=== PATIENT | male | born 1965 | race Caucasian/White ===

== ENCOUNTER 2017-09-28 17:42 | Observation (INO) ==
[2017-09-28 18:57] LABS: Basophils % 0.3 %; Eosinophils # 0.1 K/mcL (0.0-0.6); Eosinophils % 1.1 %; Hemoglobin 14.8 g/dL (12.9-16.9); Immature Granulocytes % 0.7 % (0-4); Lymphocytes # 1.3 K/mcL (0.6-4.6); Lymphocytes % 17.5 %; Mean Corpuscular HGB Conc 32.2 g/dL (31.6-35.5); Mean Corpuscular Volume 96.2 fL (83.0-100.0); Mean Platelet Volume 10.9 fL (9.4-12.4); Monocytes # 0.4 K/mcL (0.0-1.3); Neutrophils # 5.4 K/mcL (1.6-8.9); Platelet Count 127 K/mcL (140-400); Red Blood Count 4.78 M/mcL (4.19-5.50); Red Cell Distribution Width 13.9 % (11.5-14.5); Segmented Neutrophils % 74.4 %
[2017-09-28 19:10] LABS: Calcium 8.8 mg/dL (8.6-10.3); Chloride 108 mEq/L (98-107); Glucose 236 mg/dL (70-105); Potassium 5.4 mEq/L (3.5-5.1); Sodium 142 mEq/L (136-145); eGFR For African Americans > 60 (> 60); eGFR For Non-African Americans > 60 (> 60)
[2017-09-28 19:52] LABS: Carbon Dioxide 31 mEq/L (23-29)
[2017-09-28 19:58] LABS: BUN/Creatinine Ratio 17 (6-26); Blood Urea Nitrogen 20 mg/dL (6-20); Osmolality,Calculated 304 (280-300)
[2017-09-28] MEDS ORDERED: Furosemide 40 MG/4 ML VIAL IVP ONE (20:58)
--- NOTE | 2017-09-28 21:43 | Emergency Department Note ---
Disposition Clinical Impression: Shortness of breath, Peripheral edema, Obesity, Bronchiolitis obliterans Disposition: Admitted As Inpatient Condition: Good Referrals: Johnna Stern CNP [Primary Care Provider] - Forms: ED Satisfaction Letter Time of Disposition: 22:31 SOB HPI - General Chief Complaint: ED Shortness of Breath/Dyspnea Stated Complaint: LONA Time Seen by Provider: 09/28/17 20:36 Source: patient Limitations: no limitations Nursing Notes Reviewed: Yes Vital Signs Reviewed: Yes - History of Present Illness 51-year-old male presents to the ER or shortness of breath. This is been short of breath over a month but seems to be getting worse over the past few days. He is gaining 30 pounds in a month. States his legs have gotten swollen as well as his abdomen feels tighter than normal. He denies any actual chest pain. No fevers. No significant cough. He has no history of any heart or lung problems. He does not smoke. No sputum production. States he is short of breath with activity and while laying flat. No other complaints. - Related Data Allergies Allergy/AdvReac Type Severity Reaction Status Date / Time clindamycin Allergy Chest Pain Verified 09/28/17 17:49 Constitutional: Denies: fever, chills Eyes: Reports: as per HPI ENT ED: Reports: as per HPI Cardiovascular: Reports: dyspnea on exertion, orthopnea, edema. Denies: chest pain, palpitations Respiratory: Reports: as per HPI Gastrointestinal: Reports: as per HPI. Denies: abdominal pain Genitourinary: Reports: as per HPI Musculoskeletal: Reports: as per HPI Integumentary: Reports: as per HPI Neurological: Reports: as per HPI Psychiatric: Reports: as per HPI Endocrine: Reports: as per HPI Hematological/Lymphatic: Reports: as per HPI Past Medical History - Past Medical History Medical history: Reports: diabetes - Social History Smoking Status: Never smoker Alcohol use: Reports: none Drug use: Reports: none Physical Exam - General Limitations: no limitations General appearance: alert, in no apparent distress - Head Head exam: atraumatic, normocephalic - Eye Eye exam: Present: normal appearance - ENT ENT exam: normal exam - Chest Chest inspection: Present: normal inspection - Respiratory Respiratory exam: Present: wheezes. Absent: accessory muscle use, prolonged expiratory phase - Cardiovascular Cardiovascular exam: Present: normal rhythm, tachycardia - Abdominal Exam Abdominal exam: Present: soft, Non-Tender, distention - Extremities Exam Extremities exam: Present: pedal edema, other (Diffuse lower extremity swelling. 2-3+ pitting bilaterally) - Back Exam Back exam: Present: normal inspection - Neurological Exam Neurological exam: Present: alert, oriented X3 - Psychiatric Psychiatric exam: Present: normal affect, normal mood - Skin Skin exam: Present: warm, dry, intact Course Vital Signs Temperature 97.7 F 09/28/17 17:46 Pulse Rate 96 09/28/17 17:46 Respiratory Rate 22 09/28/17 17:46 Blood Pressure 152/91 09/28/17 17:46 O2 Sat by Pulse Oximetry 91 09/28/17 17:46 Temperature 97.7 F 09/28/17 17:46 Pulse Rate 82 09/28/17 21:33 Respiratory Rate 18 09/28/17 21:33 Blood Pressure 139/82 09/28/17 21:33 O2 Sat by Pulse Oximetry 96 09/28/17 21:33 Oxygen Delivery Oxygen Delivery Nasal Cannula Shortness of Breath/Dyspnea - MDM Narrative Medical decision making narrative: Patient's lab work did not reveal any significant abnormalities. I did a CTA of his chest to rule out any pulmonary embolus. That was in fact negative however at this appeared that he has evidence of a bronchiolitis obliterans. Also of note that he could have some chronic pulmonary embolus but nothing acute. He also has a prominent cardiac fat pad. Patient was given Solu-Medrol based on this CT report as well as some IV Lasix. He will be admitted for pulmonary consult and likely cardiac echo. He with this plan. I discussed the case with the hospitalist. - Medical Records Medical records reviewed: Yes I reviewed the patient's medical records. - Lab Data Lab results reviewed: Yes I reviewed the patient's lab results. Result diagrams: 09/28/17 18:48 09/28/17 18:48 Lab Results 09/28/17 09/28/17 09/28/17 Range/Units 18:48 18:48 18:48 WBC 7.2 (4.3-11.1) K/mcL RBC 4.78 (4.19-5.50) M/mcL Hgb 14.8 (12.9-16.9) g/dL Hct 46.0 (37.5-50.1) % MCV 96.2 (83.0-100.0) fL MCH 31.0 (28.0-33.3) pg MCHC 32.2 (31.6-35.5) g/dL RDW 13.9 (11.5-14.5) % Plt Count 127 L (140-400) K/mcL MPV 10.9 (9.4-12.4) fL Immature Gran % 0.7 (0-4) % Seg Neutrophils % 74.4 % Lymphocytes % 17.5 % Monocytes % 6.0 % Eosinophils % 1.1 % Basophils % 0.3 % Neutrophils # 5.4 (1.6-8.9) K/mcL Lymphocytes # 1.3 (0.6-4.6) K/mcL Monocytes # 0.4 (0.0-1.3) K/mcL Eosinophils # 0.1 (0.0-0.6) K/mcL Basophils # 0.0 (0.0-0.2) K/mcL Sodium 142 (136-145) mEq/L Potassium 5.4 H (3.5-5.1) mEq/L Chloride 108 H (98-107) mEq/L Carbon Dioxide 31 H (23-29) mEq/L BUN 20 (6-20) mg/dL Creatinine 1.16 (0.70-1.30) mg/dL Est GFR ( Amer) > 60 (> 60) Est GFR (Non-Af Amer) > 60 (> 60) BUN/Creatinine Ratio 17 (6-26) Glucose 236 H (70-105) mg/dL Calculated Osmolality 304 H (280-300) Lactic Acid 1.2 (0.5-2.2) mmol/L Calcium 8.8 (8.6-10.3) mg/dL Troponin I (< 0.04) ng/mL B-Natriuretic Peptide (Less than 100) pg/mL 09/28/17 09/28/17 Range/Units 18:48 18:48 WBC (4.3-11.1) K/mcL RBC (4.19-5.50) M/mcL Hgb (12.9-16.9) g/dL Hct (37.5-50.1) % MCV (83.0-100.0) fL MCH (28.0-33.3) pg MCHC (31.6-35.5) g/dL RDW (11.5-14.5) % Plt Count (140-400) K/mcL MPV (9.4-12.4) fL Immature Gran % (0-4) % Seg Neutrophils % % Lymphocytes % % Monocytes % % Eosinophils % % Basophils % % Neutrophils # (1.6-8.9) K/mcL Lymphocytes # (0.6-4.6) K/mcL Monocytes # (0.0-1.3) K/mcL Eosinophils # (0.0-0.6) K/mcL Basophils # (0.0-0.2) K/mcL Sodium (136-145) mEq/L Potassium (3.5-5.1) mEq/L Chloride (98-107) mEq/L Carbon Dioxide (23-29) mEq/L BUN (6-20) mg/dL Creatinine (0.70-1.30) mg/dL Est GFR ( Amer) (> 60) Est GFR (Non-Af Amer) (> 60) BUN/Creatinine Ratio (6-26) Glucose (70-105) mg/dL Calculated Osmolality (280-300) Lactic Acid (0.5-2.2) mmol/L Calcium (8.6-10.3) mg/dL Troponin I 0.03 (< 0.04) ng/mL B-Natriuretic Peptide 82 (Less than 100) pg/mL - Radiology Data Radiology results reviewed: Yes I reviewed the patient's radiology results. - EKG Data EKG attestation: Yes I reviewed and interpreted this EKG. EKG results narrative: EKG shows a rate of 90. Normal sinus rhythm. Normal axis. MO interval 112. QRS 94. QTC 396. No signs of acute ischemia.
[2017-09-28] MEDS ORDERED: methylPREDNISolone 125 MG/2 ML VIAL IVP ONE (22:22)
[2017-09-29] MEDS ORDERED: Ondansetron 4 MG/2 ML VIAL IVP PRN (02:56)
[2017-09-29] MEDS ORDERED: Naloxone 0.4 MG/ML INJ IVP PRN (02:56)
[2017-09-29] MEDS ORDERED: Ipratropium/Albuterol Neb 3 ML IH PRN (03:09)
[2017-09-29] MEDS ORDERED: *HR* Dextrose 50 % in Water (Syg) 50 ML SYRINGE IVP PRN (03:12)
[2017-09-29] MEDS ORDERED: Dextrose Gel 15 GM/37.5 ML TUBE PO PRN ×2 (03:12)
[2017-09-29] MEDS ORDERED: D5% in Water 1,000 ML IVC PRN (03:12)
--- NOTE | 2017-09-29 03:16 | Internal Med History&Physical ---
Date of Encounter: 09/29/17 Time of Encounter: 02:45 Assessment and Plan (1) Bronchiolitis obliterans Current visit: Yes Status: Acute Presented with progressive exertional dyspnea, leg swelling. CT angiogram of chest showed no evidence of pulmonary embolism but showed bilateral groundglass attenuation suggestive of small airway disease like bronchiolitis. Continue IV steroids, start IV azithromycin. Supplemental oxygen and supportive care. Check echocardiogram. Pulmonary consult. (2) Essential hypertension Current visit: Yes Status: Chronic Blood pressure noted to be well controlled. Continue home medications. (3) Diabetes mellitus Current visit: Yes Status: Chronic Check hemoglobin A1c, start Accu-Chek blood glucose monitoring with basal bolus insulin regimen. Diabetic diet. Qualifiers: Diabetes mellitus type: type 2 Diabetes mellitus complication status: with unspecified complications Diabetes mellitus halfway insulin use: with halfway use Qualified Code(s): E11.8 - Type 2 diabetes mellitus with unspecified complications; Z79.4 - intermediate card tender (current) use of insulin; Z79.4 - retirement ( current) use of insulin; Z79.4 - retirement (current) use of insulin; Z79.4 - intermediate card tender (current) use of insulin (4) Morbid obesity Current visit: Yes Status: Chronic Internal Medicine - H&P: HPI Chief complaint: Shortness of breath Admitted From: Emergency Dept Plans for Post Hospital Care: Home History of present illness: Mr. Ruano is a 51 year old male with history of hypertension and diabetes, who presents with a one-month history of progressively worsening shortness of breath. Patient reports that he has been having difficulty breathing at least for the last 1 month, getting worse gradually, associated with dry hacking cough. Dyspnea is aggravated with minimal exertion or walking a few steps. He denies associated chest pain, palpitations, wheezing, hemoptysis, fever/chills. He has leg swelling and he is on Lasix at home, has not been diagnosed with CHF. No previous similar history. No recent travel, no sick contacts at home. Did not receive flu vaccine this season. Past Med Surg Social Fam HX - Past Medical History Source: patient Medical history: diabetes, hypertension Psychiatric history: no psych history - Past Surgical History Surgical History: orthopedic, other (Left shoulder surgery) - Social History Smoking Status: Never smoker Alcohol use: none Drug use: none Occupational status: disabled Current living situation: Home, With Family Activity Level: Independent ambulation Recent Out of Country Travel Within the Last 8 Weeks: No Exposure or Possible Exposure to Illness During Travel: No - Family History Father Hx Family Cancer: Yes (Colon cancer) Hx Family Endocrine Disorder: Yes (Diabetes) Internal Medicine - H&P: Meds Amitriptyline [Elavil] 25 mg PO HS 09/28/17 [History] Amlodipine Besylate 2.5 mg PO DAILY 09/28/17 [History] Ergocalciferol (VITAMIN D2) [Vitamin D2] 50,000 unit PO LAUGHLIN 09/28/17 [History] Furosemide [Lasix] 20 mg PO BID 09/28/17 [History] Gabapentin [Neurontin] 200 mg PO HS 09/28/17 [History] Ibuprofen [Motrin] 800 mg PO Q8HR 09/28/17 [History] Insulin ASPART [NovoLOG] 0 unit SQ BIDWM 09/28/17 [History] Insulin Glargine [Lantus] 60 unit SQ BID 09/28/17 [History] Losartan Potassium [Cozaar] 100 mg PO DAILY 09/28/17 [History] metFORMIN [Glucophage] 500 mg PO BIDWM 09/28/17 [History] 3 Allergy/AdvReac Type Severity Reaction Status Date / Time clindamycin Allergy Chest Pain Verified 09/28/17 17:49 All Systems PM: A 10-system review of systems was performed and is negative for pertinent findings except as documented above in the HPI. - Constitutional Constitutional: no chills, no fever(s), no night sweats - EENT Eyes: no change in vision, no discharge, no pain, no photophobia Ears: no ear discharge, no ear pain, no tinnitus Nose, mouth and throat: no dysphagia, no nasal discharge, no neck pain, no sore throat - Cardiovascular Cardiovascular ROS IM: dyspnea on exertion, edema - Respiratory Respiratory: cough, dyspnea - Gastrointestinal Gastrointestinal: no abdominal pain, no diarrhea, no hematemesis, no hematochezia, no melena, no nausea, no vomiting - Musculoskeletal Musculoskeletal ROS IM: no numbness, no tingling - Integumentary Integumentary IM: no rash, no unusual bruising - Neurological Neurological ROS: no confusion, no convulsions, no focal weakness, no numbness, no tingling, no tremor(s) - Hematologic/Lymphatic Hematologic/Lymphatic: no easy bruising - Constitutional Vitals: Temp Pulse Resp BP Pulse Ox 97.7 F 85 16 118/75 93 09/28/17 23:53 09/28/17 23:53 09/28/17 23:53 09/28/17 23:53 09/28/17 23:53 General appearance: Present: A&O X 3, morbidly obese, answers questions appropriately - Respiratory Respiratory exam: Present: CTAB, wheezes (end expiratory wheezing at left base) . Absent: accessory muscle use, rales, rhonchi - Cardiovascular Cardiovascular exam: Present: RRR, +S1, +S2. Absent: diastolic murmur, gallop, rubs, systolic murmur - GI/Abdominal GI/Abdominal exam: Present: normal bowel sounds, soft (obese), no peritoneal signs. Absent: distended, tenderness - Extremities Exam Extremities exam: Present: full ROM, pedal edema (1+ pedal edema), warm, radial pulses palpable and symmetrical. Absent: calf tenderness, cyanotic - Neurological Exam Neurological exam: Present: CN II-XII intact, oriented X3, no focal deficits. Absent: pronater drift, facial droop, speech deficit - Skin Skin exam: Present: dry, intact Internal Med - H&P Results - Labs CBC & Chem 7: 09/29/17 03:49 09/29/17 03:49
[2017-09-29] MEDS: Azithromycin 500 MG in D5% in Water 250 ML IVPB SCH (04:02)
[2017-09-29 04:22] LABS: Basophils % 0.2 %; Eosinophils % 0.2 %; Hematocrit 50.6 % (37.5-50.1); Hemoglobin 15.8 g/dL (12.9-16.9); Immature Granulocytes % 1.5 % (0-4); Lymphocytes # 0.7 K/mcL (0.6-4.6); Lymphocytes % 8.3 %; Mean Corpuscular HGB Conc 31.2 g/dL (31.6-35.5); Mean Corpuscular Hemoglobin 29.8 pg (28.0-33.3); Mean Corpuscular Volume 95.5 fL (83.0-100.0); Mean Platelet Volume 10.6 fL (9.4-12.4); Monocytes # 0.1 K/mcL (0.0-1.3); Monocytes % 1.1 %; Neutrophils # 7.2 K/mcL (1.6-8.9); Platelet Count 137 K/mcL (140-400); Red Cell Distribution Width 13.7 % (11.5-14.5); Segmented Neutrophils % 88.7 %
[2017-09-29 04:26] LABS: Hemoglobin A1C 7.5 %
[2017-09-29 04:30] LABS: BUN/Creatinine Ratio 24 (6-26); Blood Urea Nitrogen 22 mg/dL (6-20); Calcium 9.2 mg/dL (8.6-10.3); Carbon Dioxide 29 mEq/L (23-29); Chloride 105 mEq/L (98-107); Glucose 308 mg/dL (70-105); Osmolality,Calculated 305 (280-300); Potassium 5.1 mEq/L (3.5-5.1); Sodium 140 mEq/L (136-145); eGFR For African Americans > 60 (> 60); eGFR For Non-African Americans > 60 (> 60)
--- NOTE | 2017-09-29 06:57 | Pulmonology Consult Note ---
<ManuelJuan Jose hernandez - Last Filed: 09/29/17 15:22> Date of Encounter: 09/29/17 Assessment and Plan (1) Acute respiratory failure Current Visit: Yes Status: Acute - Progressive exertional dyspnea and non productive cough x 1 month - CTA negative for PE, however shows bilateral ground glass opacities suggestive of small vessel airway disease such as bronchiolitis with less likely pulmonary edema - Pt currently tolerating 3L O2 via NC. - Admits to orthopnea and PND however BNP wnl. It is noted that pt is morbidly obese - Expiratory wheezes on exam consistent with bronchitis picture - Likely a component of undiagnosed asthma exacerbated by recent URI per HPI. Plan - Continue supportive treatment with O2, duonebs, prednisone 40 mg Qday. - Will start symbicort and albuterol and continue as outpatient. Will need outpatient follow up with pulmonology for PFTs, and sleep study. - Azithromycin 500 mg qday - Continue home lasix dose for LE swelling - Echo pending. Qualifiers: Respiratory failure complication: hypoxia Qualified Code(s): J96.01 - Acute respiratory failure with hypoxia (2) Bronchitis Current Visit: Yes Status: Acute - likely bronchitis etiology of SOB secondary to reported URI after travel in July - Likely bronchititis with underlying asthma and obesity hypoventilation syndrome. - Flu and respiratory panel negative. Plan Management as above for respiratory failure. (3) Peripheral edema Current Visit: Yes Status: Acute - No known reported history of CHF - Possible etiology of cardiogenic vs lymphadema - Echo pending - Takes lasix at home. - BNP 82, may be false low due to obesity Plan - Echo pending - Continue home lasix - Strict I/Os (4) Essential hypertension Current Visit: Yes Status: Chronic Well controlled at this time. Continue home meds (5) Diabetes mellitus Current Visit: Yes Status: Chronic - Reports tight glucose control at home. -BS elevated this AM at 308, likely the result of high dose steroids - Receiving medium SSI and methylprednisone 40 mg q6hr - Will likely continue to require high doses or steroids continuing after discharge. Plan Further management per primary team Qualifiers: Diabetes mellitus type: type 2 Diabetes mellitus complication status: with unspecified complications Diabetes mellitus manager terminal insulin use: with senior living use Qualified Code(s): E11.8 - Type 2 diabetes mellitus with unspecified complications; Z79.4 - roasterman (current) use of insulin; Z79.4 - long-term ( current) use of insulin; Z79.4 - long-term (current) use of insulin; Z79.4 - roasterman (current) use of insulin (6) Morbid obesity Current Visit: Yes Status: Chronic Encouraged weight loss as outpatient History of Present Illness History of present illness: Mr. Ruano is a 51-year-old morbidly obese male who presented to the emergency room with chief complaint of one month of progressive exertional dyspnea. He states he has never experienced this before and this has been doing progressively worse over this time. He states that he has experienced a 30 pound weight gain in the previous 2 months but denies any history of COPD, CHF, pulmonary disease of any kind. He admits to orthopnea and paroxysmal nocturnal dyspnea but denies any symptoms of apnea and states that his noticed snoring but no periods of apnea. He does admit to a nonproductive cough and chronic night sweats, however. Denies any symptoms of fevers, chills or nausea , vomiting, abdominal pain. He does admit to some chest pain with coughing but it is nonexertional in nature. Denies any history of smoking inhalation, is a Nonsmoker, no secondhand or occupational fume inhalation. He does not wearing oxygen at home. Medications and Allergies Amitriptyline [Elavil] 25 mg PO HS 09/28/17 [History] Amlodipine Besylate 2.5 mg PO DAILY 09/28/17 [History] Ergocalciferol (VITAMIN D2) [Vitamin D2] 50,000 unit PO LAUGHLIN 09/28/17 [History] Furosemide [Lasix] 20 mg PO BID 09/28/17 [History] Gabapentin [Neurontin] 200 mg PO HS 09/28/17 [History] Ibuprofen [Motrin] 800 mg PO Q8HR 09/28/17 [History] Insulin ASPART [NovoLOG] 0 unit SQ BIDWM 09/28/17 [History] Insulin Glargine [Lantus] 60 unit SQ BID 09/28/17 [History] Losartan Potassium [Cozaar] 100 mg PO DAILY 09/28/17 [History] metFORMIN [Glucophage] 500 mg PO BIDWM 09/28/17 [History] 3 Allergy/AdvReac Type Severity Reaction Status Date / Time clindamycin Allergy Chest Pain Verified 09/28/17 17:49 All Systems: A 10-system review of systems was performed and is negative for pertinent findings except as documented above in the HPI. - Constitutional Constitutional: lethargy, night sweats, weight gain (30 pounds), no chills, no excessive sweating - Cardiovascular Cardiovascular: chest pain, dyspnea on exertion, edema, leg edema, orthopnea, paroxysmal nocturnal dyspnea, no chest pain at rest, no chest pain with activity , no diaphoresis, no dyspnea, no palpitations - Respiratory Respiratory: cough, dyspnea on exertion, wheezing, snoring, pain with cough, no dyspnea, no hemoptysis, no pain on inspirtation, no chest congestion, no excessive phlegm production, no change in phlegm color - Gastrointestinal Gastrointestinal: no abdominal pain, no nausea, no vomiting Physical Examination Vital Signs: Vital Signs, Last 4 Hours Temp Pulse Resp BP Pulse Ox 09/29/17 07:18 98.4 F 92 24 154/82 91 09/29/17 04:39 98.3 F 76 18 138/74 95 General appearance: no acute distress, alert Effort: normal Inspection: normal Auscultation: bilateral: wheezes (Expiratory) Cardiovascular: regular rate and rhythm Gastrointestinal: normoactive bowel sounds, soft, non-tender Extremities: pink and warm, no ischemia or petechiae, edema (3+ bilateral lower external) normal mental status mood appropriate, affect normal Results - Laboratory Findings CBC and BMP: 09/29/17 03:49 09/29/17 03:49 Abnormal lab findings: Abnormal lab results Hct 50.6 % (37.5-50.1) H 09/29/17 03:49 MCHC 31.2 g/dL (31.6-35.5) L 09/29/17 03:49 Plt Count 137 K/mcL (140-400) L 09/29/17 03:49 BUN 22 mg/dL (6-20) H 09/29/17 03:49 Glucose 308 mg/dL (70-105) H 09/29/17 03:49 POC Glucose 160 (58-89) H 09/28/17 23:49 Hemoglobin A1c 7.5 % (-5.6) H 09/29/17 03:49 Calculated Osmolality 305 (280-300) H 09/29/17 03:49 - Clinical Findings Intake & Output: Intake & Output 09/28/17 09/28/17 09/29/17 15:59 23:59 07:59 Intake Total 800 / 800 Output Total 400 / 400 Balance 400 / 400 Weight 185.973 kg Consult Discharge Plan - Plan Referrals: Johnna Stern, CHEMISTRY TECHNICIAN [Primary Care Provider] - <Gio Smith - Last Filed: 09/29/17 16:14> Date of Encounter: 09/29/17 Time of Encounter: 06:56 History of Present Illness Consult date: 09/29/17 Requesting physician: Opal Horan Reason for consult: abnormal CXR/CT Chief complaint: Shortness of breath Past Med Surg Social Fam HX - Past Medical History Medical history: diabetes, hypertension Psychiatric history: no psych history - Past Surgical History Surgical History: orthopedic, other (Left shoulder surgery) - Social History Smoking Status: Never smoker Alcohol use: none Drug use: none - Family History Father Hx Family Cancer: Yes (Colon cancer) Hx Family Endocrine Disorder: Yes (Diabetes) All Systems: A 10-system review of systems was performed and is negative for pertinent findings except as documented above in the HPI. Physical Examination Vital Signs: Vital Signs, Last 4 Hours Temp Pulse Resp BP Pulse Ox 09/29/17 04:39 98.3 F 76 18 138/74 95 Results - Laboratory Findings CBC and BMP: 09/29/17 03:49 09/29/17 03:49 Abnormal lab findings: Abnormal lab results Hct 50.6 % (37.5-50.1) H 09/29/17 03:49 MCHC 31.2 g/dL (31.6-35.5) L 09/29/17 03:49 Plt Count 137 K/mcL (140-400) L 09/29/17 03:49 BUN 22 mg/dL (6-20) H 09/29/17 03:49 Glucose 308 mg/dL (70-105) H 09/29/17 03:49 POC Glucose 160 (58-89) H 09/28/17 23:49 Hemoglobin A1c 7.5 % (-5.6) H 09/29/17 03:49 Calculated Osmolality 305 (280-300) H 09/29/17 03:49 - Clinical Findings Intake & Output: Intake & Output 09/28/17 09/28/17 09/29/17 15:59 23:59 07:59 Intake Total 800 / 800 Output Total 400 / 400 Balance 400 / 400 Weight 185.973 kg - Attending Attestation I examined this patient and my medical decision-making was reviewed with the Resident Physician. I agree with the documented findings, disposition and treatment plan as described except to the extent set forth below. We independently had [id number] contact with the patient 51yo no know Pulmonary History c/o 1 month history of Cough and Shortness of breath. Has had a chronic cough for greater than 2 years and chronic dyspnea minutes worsened markedly over the last 2 months. This appears to have been precipitated by a upper respiratory tract infection that he acquired while traveling to [facility]. He also endorses symptoms of of daytime hypersomnolence frequent napping fall asleep while driving and snoring Lifelong Non smoker No significant industrial exposures Prior history of a parakeet but this was greater than 10 years ago and house has been remodeled since then Uses acrylic paint as a hobby Data 95% on 3L NC O2 Exam: scattered rhonchi prolonged exp phase end exp wheezes noted; Coughing paroxysms' bilateral lower extremity edema HCO3 =31 CTA evidence of GGOs b/l with mosaic attentuation. Chronic Bronchial Wall thickening. No PE. Impression: Suspected chronic hypoxia related to obesity hypoventilation syndrome I suspect underlying reactive airways disease (asthma) that has been triggered recently by a couple of respiratory infections. I also have a high pretest probability of sleep disordered breathing and obesity hypoventilation syndrome. It is too early to diagnose bronchiolitis obliterans in this patient as the CT images are very nonspecific. CTA is not an ideal imaging modality to assess for the nuances of Pulmonary parenchymal architecture He is at high risk for cardiovascular disease and physical exam history could be at least in part secondary to a cardiac etiology of his shortness of breath Recs: Agree with steroids can be the escalated to oral prednisone 40 mg to treat for 5 days I will defer management of hyperglycemia associated steroids to primary medicine service It is also reasonable to continue a 5 day course of azithromycin (Z-Brady) Start Symbicort 160/4.52 puffs twice a day Duo nebs scheduled every 6 hours while inpatient with hourly albuterol nebulizers as needed Discharge patient was short acting beta agonist in MDI form Will need overnight pulse oximetry and discharge with supplement oxygen as needed is optimal oxygen saturations recorded greater than 88% to 92% Follow-up pulmonary clinic for high-resolution CT scan and pulmonary function testing and PSG at 2 weeks from discharge Consider use of empiric Lasix 40 mg daily for the next 1-2 days to evaluate for effect
[2017-09-29] MEDS ORDERED: MethylPREDNISolone 40 MG/ML VIAL IVP SCH (08:00)
[2017-09-29] MEDS: amLODIPine 5 MG TABLET PO SCH (08:23)
[2017-09-29] MEDS: Insulin DETEMIR 100 UNIT/ML X5UNITS SQ SCH ×2 (08:24→22:22)
[2017-09-29] MEDS: Furosemide 20 MG TABLET PO SCH ×2 (08:24→18:15)
[2017-09-29] MEDS: Insulin LISPRO 300 UNITS/3 ML VIAL SQ SCH ×4 (08:24→21:24)
[2017-09-29] MEDS ORDERED: NON-FORMULARY MEDICATION 1 EACH EACH (Insulin Glargine [Lantus] 60 UNIT) SQ SCH (09:00)
[2017-09-29] MEDS ORDERED: Perflutren Lipid Microsphere 1.3 ML in 0.9 % Sodium Chloride 8.7 ML IVP ONE (09:37)
--- NOTE | 2017-09-29 14:15 | Event Note ---
Date of Encounter: 09/29/17 Time of Encounter: 11:15 Patient is feeling somewhat better today. He is breathing better but gets dyspneic with mild exertion. No chest pain. Does have some cough. On examination has bilateral expiratory wheezing. Acute respiratory failure with hypoxia possibly due to bronchiolitis obliterans : Treating with O2 supplementation, azithromycin and steroids along with bronchodilators. Pulmonology input appreciated.
[2017-09-29] MEDS: Ipratropium/Albuterol Neb 3 ML IH SCH ×2 (18:15→22:09)
[2017-09-29 20:03] LABS: Adenovirus Not Detected (Not Detect); Coronavirus 229E Not Detected (Not Detect); Coronavirus HKU1 Not Detected (Not Detect); Coronavirus NL63 Not Detected (Not Detect); Coronavirus OC43 Not Detected (Not Detect); Human Metapneumovirus Not Detected (Not Detect); Human Rhinovirus/Enterovirus Not Detected (Not Detect); Influenza A Subtype 2009 H1 Not Detected (Not Detect); Influenza A Untypeable Not Detected (Not Detect); Influenza B Not Detected (Not Detect)
[2017-09-29 20:04] LABS: Bordetella Pertussis Not Detected (Not Detect); Chlamydophila pneumoniae Not Detected (Not Detect); Mycoplasma pneumoniae Not Detected (Not Detect); Parainfluenza Virus 1 Not Detected (Not Detect); Parainfluenza Virus 2 Not Detected (Not Detect); Parainfluenza Virus 3 Not Detected (Not Detect); Parainfluenza Virus 4 Not Detected (Not Detect); Respiratory Syncytial Virus Not Detected (Not Detect)
[2017-09-29] MEDS ORDERED: Insulin LISPRO 300 UNITS/3 ML VIAL SQ SCH (21:00)
[2017-09-29] MEDS: Gabapentin 100 MG CAPSULE PO SCH (21:23)
[2017-09-29] MEDS ORDERED: Budesonide/Formoterol 160/4.5 MDI IH SCH (22:00)
[2017-09-29] MEDS: Budesonide/Formoterol 160/4.5 MDI IH SCH (22:09)
[2017-09-30] MEDS: Azithromycin 500 MG in D5% in Water 250 ML IVPB SCH (03:36)
[2017-09-30] MEDS: Ipratropium/Albuterol Neb 3 ML IH SCH ×4 (03:52→21:20)
[2017-09-30] MEDS: *HR* Enoxaparin 40 MG/0.4 ML SYRINGE SQ SCH (06:01)
[2017-09-30] MEDS: Acetaminophen 325 MG TABLET PO PRN ×2 (06:03→17:12)
--- NOTE | 2017-09-30 07:39 | Pulmonology Progress Note ---
<Juan Jose La - Last Filed: 09/30/17 13:45> Date of Encounter: 09/30/17 Time of Encounter: 08:41 Assessment and Plan (1) Acute respiratory failure Current Visit: Yes Status: Acute - Progressive exertional dyspnea and non productive cough x 1 month - CTA negative for PE, however shows bilateral ground glass opacities suggestive of small vessel airway disease such as bronchiolitis with less likely pulmonary edema - Pt currently tolerating 2L O2 via NC. Pulse oxemetry during interview in high 80s- low 90s on RA - Admits to orthopnea and PND however BNP wnl. It is noted that pt is morbidly obese - Expiratory wheezes on exam consistent with bronchitis picture - Likely a component of undiagnosed asthma exacerbated by recent URI per HPI. - Echo pending shows normal EF of 65% with mild diastolic dysfunction. Plan - Continue supportive treatment with O2, duonebs, prednisone 40 mg Qday for a 5 day course. - Will start symbicort and albuterol and continue as outpatient. Will need outpatient follow up with pulmonology for PFTs, follow up CT and sleep study. - Azithromycin 500 mg qday - Continue home lasix dose for LE swelling - Will sign off that this time and follow up with pulmonology as outpatient. Qualifiers: Respiratory failure complication: hypoxia Qualified Code(s): J96.01 - Acute respiratory failure with hypoxia (2) Bronchitis Current Visit: Yes Status: Acute - likely bronchitis etiology of SOB secondary to reported URI after travel in July with underlying asthma and obesity hypoventilation syndrome - Flu and respiratory panel negative. Plan Management as above for respiratory failure. (3) Peripheral edema Current Visit: Yes Status: Acute - No known reported history of CHF. Echo shows mild diastolic dysfunction. - Possible etiology of cardiogenic vs lymphadema - Takes lasix at home. - BNP 82, may be false low due to obesity Plan - Continue home lasix, encouraged movement. - Strict I/Os - Would benefit from outpatient non invasive ischemia evaluation such as stress test. (4) Essential hypertension Current Visit: Yes Status: Chronic Bp of 124/72 this AM Plan Management per primary team (5) Diabetes mellitus Current Visit: Yes Status: Chronic - Reports tight glucose control at home. -BS elevated this AM at 308, likely the result of high dose steroids - Receiving medium SSI and methylprednisone 40 mg q6hr - A1c of 7.5% - Will likely continue to require high doses or steroids continuing after discharge. Plan Further management per primary team Qualifiers: Diabetes mellitus type: type 2 Diabetes mellitus complication status: with unspecified complications Diabetes mellitus terminologist insulin use: with terminologist use Qualified Code(s): E11.8 - Type 2 diabetes mellitus with unspecified complications; Z79.4 - [facility] (current) use of insulin; Z79.4 - long term care administrator ( current) use of insulin; Z79.4 - [facility] (current) use of insulin; Z79.4 - long term care administrator (current) use of insulin (6) Morbid obesity Current Visit: Yes Status: Chronic Encouraged weight loss as outpatient May be contributing to dyspnea via OHS Subjective Principal diagnosis: reactive airway disease Interval history: Patient was seen and examined at bedside. He states that overall he feels slightly better from yesterday. He reports improvement in his breathing but still does note a nonproductive cough which is mildly improved since yesterday. The inhalers which was started yesterday, improved his breathing and cough. He continues to deny any symptoms of chest pain. He states that he is eager to go home but would like to not go home on oxygen if possible. Objective PUL Vital signs: Last Vital Signs Temp 97.7 F 09/30/17 07:21 Pulse 96 09/30/17 07:21 Resp 18 09/30/17 07:21 BP 123/73 09/30/17 07:21 Pulse Ox 94 09/30/17 07:21 General appearance: no acute distress, alert Eyes: nonicteric ENT: oropharynx moist Effort: normal Auscultation: bilateral: wheezes (expiratory wheezes in bilateral bases, worse on Left) Cardiovascular: regular rate and rhythm Integumentary: normal Extremities: no cyanosis, no clubbing, pink and warm, edema (3+) normal mental status Results - Laboratory Findings CBC and BMP: 09/29/17 03:49 09/29/17 03:49 Abnormal lab findings: Abnormal lab results Hct 50.6 % (37.5-50.1) H 09/29/17 03:49 MCHC 31.2 g/dL (31.6-35.5) L 09/29/17 03:49 Plt Count 137 K/mcL (140-400) L 09/29/17 03:49 BUN 22 mg/dL (6-20) H 09/29/17 03:49 Glucose 308 mg/dL (70-105) H 09/29/17 03:49 POC Glucose 347 (58-89) H 09/29/17 20:05 Hemoglobin A1c 7.5 % (-5.6) H 09/29/17 03:49 Calculated Osmolality 305 (280-300) H 09/29/17 03:49 - Clinical Findings Intake & Output: Intake & Output 09/29/17 09/29/17 09/30/17 15:59 23:59 07:59 Intake Total 840 / 840 480 / 480 Balance 840 / 840 480 / 480 Weight 186.517 kg Consult Discharge Plan - Plan Referrals: Johnna Stern CNP [Primary Care Provider] - <Gio Smith - Last Filed: 09/30/17 16:23> Date of Encounter: 09/30/17 Objective PUL Vital signs: Last Vital Signs Temp 98 F 09/30/17 11:08 Pulse 88 09/30/17 11:08 Resp 18 09/30/17 15:04 BP 124/72 09/30/17 11:08 Pulse Ox 91 09/30/17 15:25 Results - Laboratory Findings CBC and BMP: 09/29/17 03:49 09/29/17 03:49 Abnormal lab findings: Abnormal lab results Hct 50.6 % (37.5-50.1) H 09/29/17 03:49 MCHC 31.2 g/dL (31.6-35.5) L 09/29/17 03:49 Plt Count 137 K/mcL (140-400) L 09/29/17 03:49 BUN 22 mg/dL (6-20) H 09/29/17 03:49 Glucose 308 mg/dL (70-105) H 09/29/17 03:49 POC Glucose 347 (58-89) H 09/29/17 20:05 Hemoglobin A1c 7.5 % (-5.6) H 09/29/17 03:49 Calculated Osmolality 305 (280-300) H 09/29/17 03:49 - Clinical Findings Intake & Output: Intake & Output 09/30/17 09/30/17 09/30/17 07:59 15:59 23:59 Weight 186.517 kg - Attending Attestation I examined this patient and my medical decision-making was reviewed with the Resident Physician. I agree with the documented findings, disposition and treatment plan as described except to the extent set forth below. We independently had [id number] contact with the patient Overall Doing Better today. Impression: Chronic Respiratory failure Reactive Airways disease supected Asthma with Exacerbation OHS ZORAIDA Morbid Obesity Diastolic Dysfunction Recs Wean Fio2 needs qualified prior to d/c Cont Azithro x 5 days Prednisone 40mg x days Cont symbciort/Albuterol PSG has been arranged as opt OPT Pulm F/u for HRCT and PFTs Outpatient Nonischemic Cardiology Evaluation Weight loss encouraged Pulmonary Will Sing off
[2017-09-30] MEDS: Insulin LISPRO 300 UNITS/3 ML VIAL SQ SCH ×7 (07:59→20:37)
[2017-09-30] MEDS: Furosemide 20 MG TABLET PO SCH ×2 (08:00→17:13)
[2017-09-30] MEDS: amLODIPine 5 MG TABLET PO SCH (08:00)
[2017-09-30] MEDS: predniSONE 20 MG TABLET PO SCH (08:01)
[2017-09-30] MEDS: Insulin DETEMIR 100 UNIT/ML X5UNITS SQ SCH ×2 (09:06→20:37)
[2017-09-30] MEDS: Budesonide/Formoterol 160/4.5 MDI IH SCH ×2 (11:24→21:22)
--- NOTE | 2017-09-30 17:12 | Internal Med Progress Note ---
Date of Encounter: 09/30/17 Time of Encounter: 11:20 - Assessment and plan (1) Acute respiratory failure Current Visit: Yes Status: Acute Assessment and plan: Patient continues to have exertional dyspnea and remains on O2 supplementation. We will evaluate for home oxygen. Multifactorial with underlying bronchitis, obesity hypoventilation, possible bronchiolitis. 2D echo also shows left ventricular diastolic dysfunction. Continue current management with bronchodilators, steroids, azithromycin. Wean FiO2 as tolerated. 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 (3) Bronchitis Current Visit: Yes Status: Acute Assessment and plan: Continue treatment with azithromycin and bronchodilators along with systemic steroids. (4) Diabetes mellitus Current Visit: Yes Status: Chronic Assessment and plan: Blood sugars remain uncontrolled. Will increase insulin regimen and also place patient on nutritional coverage. Qualifiers: Diabetes mellitus type: type 2 Diabetes mellitus complication status: with unspecified complications Diabetes mellitus bed bug exterminator insulin use: with [facility] use Qualified Code(s): E11.8 - Type 2 diabetes mellitus with unspecified complications; Z79.4 - long term care phlebotomist (current) use of insulin; Z79.4 - [facility] ( current) use of insulin; Z79.4 - [facility] (current) use of insulin; Z79.4 - [facility] (current) use of insulin (5) Essential hypertension Current Visit: Yes Status: Chronic Assessment and plan: Continue amlodipine and losartan. Mostly controlled with intermittent elevation. (6) Morbid obesity Current Visit: Yes Status: Chronic (7) Peripheral edema Current Visit: Yes Status: Acute Assessment and plan: Continue Lasix. On anticoagulation with Lovenox. - Subjective Interval history: Patient is doing better today. He did have an episode of wheezing with cough prior to my visit that seemed to resolve after he received bronchodilators. Denies any chest pain at this time. No nausea or vomiting. Tolerating diet well. - Constitutional Vitals: Temp Pulse Resp BP Pulse Ox 97.8 F 99 19 149/81 94 09/30/17 16:19 09/30/17 16:19 09/30/17 16:19 09/30/17 16:19 09/30/17 16:19 General appearance: Present: mild distress, A&O X 3, morbidly obese, answers questions appropriately - Neck Neck exam general surgery: Present: supple, trachea midline. Absent: lymphadenopathy - Respiratory Respiratory exam: Present: decreased breath sounds (Diminished air entry at both bases), prolonged expiratory phase, wheezes (End expiratory). Absent: accessory muscle use, rales, rhonchi - Cardiovascular Cardiovascular exam: Present: RRR, +S1, +S2. Absent: diastolic murmur, gallop, rubs, systolic murmur - Extremities Exam Extremities exam: Present: pedal edema, warm, radial pulses palpable and symmetrical. Absent: calf tenderness, cyanotic - Neurological Exam Neurological exam: Present: CN II-XII intact, oriented X3, no focal deficits. Absent: facial droop, speech deficit Internal Medicine: Result - Labs CBC & Chem 7: 09/29/17 03:49 09/29/17 03:49 Labs: Cardiac Enzymes 09/29/17 Range/Units 16:39 Troponin I < 0.03 (< 0.04) ng/mL Consult Discharge Plan - Plan Referrals: Johnna Stern CNP [Primary Care Provider] -
--- NOTE | 2017-09-30 19:01 | Electrocardiograph Report ---
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
[2017-09-30] MEDS: Gabapentin 100 MG CAPSULE PO SCH (20:36)
[2017-10-01] MEDS: Ipratropium/Albuterol Neb 3 ML IH SCH ×3 (04:51→16:32)
[2017-10-01] MEDS: *HR* Enoxaparin 40 MG/0.4 ML SYRINGE SQ SCH (06:11)
[2017-10-01] MEDS ORDERED: Azithromycin 250 MG TABLET PO SCH (07:00)
[2017-10-01] MEDS: amLODIPine 5 MG TABLET PO SCH (07:57)
[2017-10-01] MEDS: Insulin DETEMIR 100 UNIT/ML X5UNITS SQ SCH (07:58)
[2017-10-01] MEDS: predniSONE 20 MG TABLET PO SCH (07:58)
[2017-10-01] MEDS: Furosemide 20 MG TABLET PO SCH ×2 (07:58→17:29)
[2017-10-01] MEDS: Insulin LISPRO 300 UNITS/3 ML VIAL SQ SCH ×6 (07:59→17:30)
[2017-10-01] MEDS: Acetaminophen 325 MG TABLET PO PRN (08:02)
[2017-10-01] MEDS: Budesonide/Formoterol 160/4.5 MDI IH SCH (10:49)
--- NOTE | 2017-10-01 12:38 | Discharge Summary ---
Date of Encounter: 10/01/17 Time of Encounter: 08:30 - Discharge Diagnosis (1) Acute respiratory failure Priority: Primary Status: Acute Comments: Likely secondary to underlying Acute Bronchitis, ZORAIDA and possible bronchiolitis Now improved Patient now requires oxygen supplementation, continue 3 L O2 via NC LVEF 65%, mild LV diastolic dysfunction, no significant valvular dysfunction Continue DuoNeb breathing treatment at home, Prednisone, Azithromycin Return if symptoms worsen, follow up with PCP and pulmonology Qualifiers: Respiratory failure complication: hypoxia Qualified Code(s): J96.01 - Acute respiratory failure with hypoxia (2) ZORAIDA (obstructive sleep apnea) Priority: Primary Status: Acute Comments: Probable undiagnosed obstructive sleep apnea and obesity hypoventilation Patient will probably need sleep study Follow up with pulmonology as outpatient (3) Bronchitis Priority: Primary Status: Acute Comments: Continue DuoNeb breathing treatment, Azithromycin, Prednisone (4) Peripheral edema Priority: Primary Status: Acute Comments: Continue home dose of Lasix (5) Essential hypertension Priority: Primary Status: Chronic Comments: Essential hypertension, controlled, monitor Continue Norvasc, Cozaar (6) Diabetes mellitus Priority: Primary Status: Chronic Comments: Type 2 diabetes mellitus, insulin-dependent, hyperglycemia NT home dose of Glucophage, NovoLog, Lantus Qualifiers: Diabetes mellitus type: type 2 Diabetes mellitus complication status: with unspecified complications Diabetes mellitus ferry terminal agent insulin use: with jail use Qualified Code(s): E11.8 - Type 2 diabetes mellitus with unspecified complications; Z79.4 - long term care pharmacist (current) use of insulin; Z79.4 - shelter ( current) use of insulin; Z79.4 - long term care pharmacist (current) use of insulin; Z79.4 - long term care pharmacist (current) use of insulin (7) Morbid obesity Priority: Primary Status: Chronic Comments: Morbid obesity with BMI 59.4 Advised lifestyle modification - Discharge Medications Prescriptions: Albuterol Sulfate [Albuterol Inhaler] 2 puff IH [id number] PRN #1 inhaler PRN Reason: Shortness Of Breath/Wheezing Ipratropium/Albuterol Neb [Duoneb] 3 ml IH [id number] PRN #30 inhsol PRN Reason: Shortness Of Breath/Wheezing Azithromycin [Zithromax] 500 mg PO Q24H 3 Days #3 tablet Budesonide/Formoterol 160/4.5 [Symbicort 160/4.5] 2 puff IH BIDR #1 inhaler predniSONE [PredniSONE] 20 mg PO DAILY #10 tablet Home Medications: Amitriptyline [Elavil] 25 mg PO HS 09/28/17 [History] Amlodipine Besylate 2.5 mg PO DAILY 09/28/17 [History] Ergocalciferol (VITAMIN D2) [Vitamin D2] 50,000 unit PO LAUGHLIN 09/28/17 [History] Furosemide [Lasix] 20 mg PO BID 09/28/17 [History] Gabapentin [Neurontin] 200 mg PO HS 09/28/17 [History] Ibuprofen [Motrin] 800 mg PO Q8HR 09/28/17 [History] Insulin ASPART [NovoLOG] 0 unit SQ BIDWM 09/28/17 [History] Insulin Glargine [Lantus] 60 unit SQ BID 09/28/17 [History] Losartan Potassium [Cozaar] 100 mg PO DAILY 09/28/17 [History] metFORMIN [Glucophage] 500 mg PO BIDWM 09/28/17 [History] Albuterol Sulfate [Albuterol Inhaler] 2 puff IH [id number] PRN #1 inhaler 10/01/17 [Rx] Azithromycin [Zithromax] 500 mg PO Q24H 3 Days #3 tablet 10/01/17 [Rx] Budesonide/Formoterol 160/4.5 [Symbicort 160/4.5] 2 puff IH BIDR #1 inhaler [Rx] Ipratropium/Albuterol Neb [Duoneb] 3 ml IH [id number] PRN #30 inhsol 10/01/17 [Rx] predniSONE [PredniSONE] 20 mg PO DAILY #10 tablet 10/01/17 [Rx] Allergies/Adverse Reactions: 3 Allergy/AdvReac Type Severity Reaction Status Date / Time clindamycin Allergy Chest Pain Verified 09/28/17 17:49 Procedures/tests Complete & Pending: Procedures Performed prior 72 hours Category Date Time Status EV echocardiogram w enhance Routine Y 09/29/17 03:10 Completed Date of admission: 09/28/17 23:07 Primary care physician: Johnna Stern CNP Consults: 09/29/17 03:10 Consult to Pulmonology [CONS] Routine Consulting Provider: [facility]m [facility] Katelyn Reason for Consult: Worsening SOB, dry cough, CT shows bronchiolitis obliterans Call Completed: No 09/29/17 16:20 Consult to Respiratory Therapy [CONS] Routine Reason for Consult: inhaler instruction (also use of Spacer) Call Completed: Yes Anticipated date of discharge: 10/01/17 - Patient Status Disposition: Home, Self-Care Condition: Good Functional capacity at discharge: independent ambulation Overall status at discharge: patient is progressing back to baseline - Discharge Instructions Instructions: Sleep Apnea Syndrome (DC), Acute Respiratory Distress Syndrome ( DC), Acute Bronchitis (DC) Follow Up With: Gio Smith MD [Partnered Physician] - (web request sent. Office should call you with an appointment date and time ) Johnna Stern CNP [Primary Care Provider] - (Please call your PCP on Tuesday to make a follow up appointment) Additional Instructions: - Continue all meds as per discharge restrictions - Return if symptoms worsen - Follow up with PCP and pulmonology - Continue O2 via NC, oxygen is being set up at home - Diet and Activity Activity: increase activity as tolerated, wear oxygen at all times Diet: diabetic diet, low fat, low cholesterol Hospital course: Mr. Ruano is a 51 year old male with past medical history of diabetes and hypertension. Patient presented to ED with complaints of shortness of breath. He stated that he had a dry hacking cough and reported difficulty breathing for at least one month. Patient was admitted for bronchiolitis obliterans. Start on DuoNeb breathing treatment and IV steroids and IV antibiotics. Patient was on supplemental oxygen via NC. Pulmonology was consulted. The patient likely has untreated sleep apnea and obesity hypoventilation. CTA is negative for PE but showed bilateral groundglass opacities likely small vessel airway disease such as bronchiolitis advised to continue Symbicort albuterol and azithromycin. Patient does qualify for home oxygen. He will need to be continuing 3 L via nasal cannula. Echocardiogram shows LVEF 65% with mild LV diastolic dysfunction with no valvular dysfunction. Patient's symptoms improved. He is now tolerating oral diet well and ambulating well. He denies shortness of breath or chest pain. States he feels better and wants to go home. Patient and family members have been explained about his condition and plan of care in detail. They understood and agreed. No unanswered questions. Patient has been advised to continue all meds as per discharge instructions and to continue oxygen. Otherwise follow up PCP and pulmonology as outpatient. Advised to return if symptoms worsen. - Time Spent with Patient Total time spent providing and/or coordinating discharge services: Less than 30 minutes - Constitutional Vitals: Temp Pulse Resp BP Pulse Ox 97.3 F L 88 16 120/76 91 10/01/17 11:41 10/01/17 11:41 10/01/17 11:41 10/01/17 11:41 10/01/17 11:41 General appearance: Present: cooperative, A&O X 3, morbidly obese, pleasant, no acute distress, answers questions appropriately - Head Head exam: Present: atraumatic - Eye Eye exam: Present: EOMI - ENT ENT exam: Present: mucous membranes moist - Respiratory Respiratory exam: Present: CTAB. Absent: accessory muscle use, chest wall tenderness, rales, respiratory distress, rhonchi, wheezes, tachypnea - Cardiovascular Cardiovascular exam: Present: RRR, +S1, +S2 - GI/Abdominal GI/Abdominal exam: Present: soft (Obese). Absent: distended, firm, guarding, tenderness - Extremities Exam Extremities exam: Present: pedal edema (Bilateral lower leg edema mild), radial pulses palpable and symmetrical. Absent: calf tenderness, cyanotic - Neurological Exam Neurological exam: Present: alert, oriented X3, no focal deficits. Absent: facial droop, speech deficit
[2017-10-01 16:44] VITALS: BP 157/89
== END 2017-10-01 18:10 | disposition home or self-care (01) ==
LOC: 2ANU 17:42 → EMEROO 17:42 → SUATTDRO 23:07 → 2ANU 23:45
PROVIDERS: ADMIT Internal Medicine; ATTEND Internal Medicine

== ENCOUNTER 2017-11-21 13:25 | Inpatient (IN) ==
[2017-11-21] MEDS ORDERED: Ipratropium/Albuterol Neb 3 ML IH ONE (13:51)
--- NOTE | 2017-11-21 14:11 | Emergency Department Note ---
Disposition Clinical Impression: Exertional dyspnea Disposition: Admitted As Inpatient Condition: Fair Forms: ED Satisfaction Letter Time of Disposition: 15:30 SOB HPI - General Chief Complaint: ED Shortness of Breath/Dyspnea Stated Complaint: LONA Time Seen by Provider: 11/21/17 13:51 Source: patient Mode of arrival: ambulatory Limitations: no limitations Nursing Notes Reviewed: Yes Vital Signs Reviewed: Yes - History of Present Illness 51-year-old male who was diagnosed with bronchiolitis and bronchitis back in August has had trouble with increasing shortness of breath since he has got profound exertional dyspnea. He did not have a cardiac workup he does have an appointment in December with cardiology. Pt Subjective Complaint: shortness of breath Onset (ago): week(s) (Worse over the last 4 days) Context: recent illness (Diagnosed with bronchitis bronchiolitis.) Severity: moderate Improves with: nothing Worsens with: exertion Known history of: other (Recent bronchitis bronchiolitis sleep apnea) Associated symptoms: Reports: cough. Denies: fever Treatment prior to arrival: none - Related Data Home Medications Medication Instructions Recorded Confirmed Amitriptyline [Elavil] 25 mg PO HS 09/28/17 11/21/17 Amlodipine Besylate 2.5 mg PO DAILY 09/28/17 11/21/17 Ergocalciferol (VITAMIN D2) 50,000 unit PO LAUGHLIN 09/28/17 11/21/17 [Vitamin D2] Gabapentin [Neurontin] 200 mg PO HS 09/28/17 11/21/17 Ibuprofen [Motrin] 800 mg PO Q8HR 09/28/17 11/21/17 Insulin ASPART [NovoLOG] 0 unit SQ BIDWM 09/28/17 11/21/17 Insulin Glargine [Lantus] 50 unit SQ BID 09/28/17 11/21/17 metFORMIN [Glucophage] 1,000 mg PO BIDWM 09/28/17 11/21/17 Fluticasone/Salmeterol [Advair 1 each IH BID 11/21/17 11/21/17 100-50 Diskus] Losartan/Hydrochlorothiazide 1 each PO DAILY 11/21/17 11/21/17 [Hyzaar 100-25 Tablet] Multivitamin [Multivitamins] 1 each PO DAILY 11/21/17 11/21/17 Previous Rx's Medication Instructions Recorded Albuterol Sulfate [Albuterol 2 puff IH [id number] PRN #1 inhaler 10/01/17 Inhaler] Ipratropium/Albuterol Neb [Duoneb] 3 ml IH [id number] PRN #30 inhsol 10/01/17 Allergies Allergy/AdvReac Type Severity Reaction Status Date / Time clindamycin Allergy Chest Pain Verified 09/28/17 17:49 All systems ED: reviewed and negative except as stated. Constitutional: Denies: fever, chills, weakness, weight change Eyes: Denies: eye pain, eye discharge, vision change ENT ED: Denies: ear pain, throat pain, dental pain, hearing loss, epistaxis, congestion, dysphagia Cardiovascular: Reports: dyspnea on exertion. Denies: chest pain, palpitations , edema, syncope Respiratory: Reports: dyspnea. Denies: cough, wheezes, hemoptysis, stridor Gastrointestinal: Denies: abdominal pain, nausea, vomiting, diarrhea, constipation, hematemesis, melena, hematochezia Genitourinary: Denies: urgency, dysuria, frequency, hematuria Musculoskeletal: Denies: back pain, neck pain, arthralgia, myalgia Integumentary: Denies: rash, abrasion, lesions Neurological: Denies: headache, weakness, numbness, paresthesias, confusion, abnormal gait, vertigo Psychiatric: Denies: anxiety, depression, suicidal thoughts, homicidal thoughts , auditory hallucinations, visual hallucinations Endocrine: Reports: fatigue Hematological/Lymphatic: Denies: easy bleeding, easy bruising Allergic/Immunologic: Denies: facial swelling, urticaria Past Medical History - Past Medical History Medical history: Reports: asthma, diabetes, hyperlipidemia, hypertension, peripheral artery disease, other Surgical history: Reports: orthopedic, other (Left shoulder surgery) Psychiatric history: Reports: no psych history - Social History Smoking Status: Never smoker Alcohol use: Reports: none Drug use: Reports: none Physical Exam - General Limitations: no limitations General appearance: alert - Head Head exam: atraumatic, normocephalic, normal inspection - Eye Eye exam: Present: normal appearance, PERRL, EOMI - Expanded Eye Exam Pupils: Left: reactive - ENT ENT exam: normal exam, normal oropharynx, mucous membranes moist - Expanded ENT Exam External ear exam: Present: normal external inspection Mouth exam: Present: normal external inspection Teeth exam: Present: normal inspection Throat exam: Present: normal inspection - Neck Neck exam: Present: normal inspection, full ROM, trachea midline - Chest Chest inspection: Present: normal inspection, symmetric chest wall rise - Respiratory Respiratory exam: Present: normal lung sounds bilaterally - Cardiovascular Cardiovascular exam: Present: regular rate, normal rhythm, normal heart sounds - Abdominal Exam Abdominal exam: Present: soft, Non-Tender. Absent: tenderness, distention, guarding, rebound, rigidity - Extremities Exam Extremities exam: Present: normal inspection, full ROM. Absent: tenderness, pedal edema - Expanded Upper Extremity Exam Shoulder exam: Present: normal inspection, full ROM Arm exam: Present: normal inspection, full ROM Elbow exam: Present: normal inspection, full ROM Forearm/Wrist exam: Present: normal inspection, full ROM Hand exam: Present: normal inspection, full ROM Vascular exam: Normal: capillary refill, radial pulse - Expanded Lower Extremity Exam Hip/Pelvis exam: Present: normal inspection, full ROM Upper leg exam: Present: normal inspection, full ROM Knee exam: Present: normal inspection, full ROM Lower leg exam: Present: normal inspection, full ROM Ankle exam: Present: normal inspection, full ROM Foot/toe exam: Present: normal inspection, full ROM Neurovascular/Tendon exam: Absent: motor deficit, sensory deficit, tendon deficit - Back Exam Back exam: Present: normal inspection, full ROM. Absent: tenderness - Neurological Exam Neurological exam: Present: alert, oriented X3 - Expanded Neurological Exam Patient oriented to: Present: person, place, time Coma Scale Eye Opening: Spontaneous Coma Scale Motor Response: Obeys Commands Coma Scale Verbal Response: Oriented Coma Scale Total: 15 - Psychiatric Psychiatric exam: Present: normal affect, normal mood - Skin Skin exam: Present: warm, dry, intact, normal color Course - Reevaluation(s) Reevaluation #1: 51-year-old with severe exertional dyspnea. Patient was hospitalized several weeks ago for similar complaints and was diagnosed with bronchitis bronchiolitis obstructive sleep apnea. Symptoms of gotten progressively worse. Workup here chest x-ray is negative BNP is negative chest x-ray there is a question of congestion. Patient will be admitted for possible anginal equivalent. Time: 15:27 - Consultations Consultation #1: Discussed with , admit. Time: 15:28 Vital Signs Temperature 98.8 F 11/21/17 13:30 Pulse Rate 99 11/21/17 13:30 Respiratory Rate 22 11/21/17 13:30 Blood Pressure 143/85 11/21/17 13:30 O2 Sat by Pulse Oximetry 92 11/21/17 13:30 Temperature 98.8 F 11/21/17 13:30 Pulse Rate 98 11/21/17 15:08 Respiratory Rate 18 11/21/17 15:08 Blood Pressure 131/78 11/21/17 15:08 O2 Sat by Pulse Oximetry 94 11/21/17 15:08 Oxygen Delivery Oxygen Delivery Nasal Cannula Shortness of Breath/Dyspnea - Lab Data Lab results reviewed: Yes I reviewed the patient's lab results. Result diagrams: 11/21/17 14:15 11/21/17 14:15 Lab Results 11/21/17 11/21/17 11/21/17 Range/Units 14:15 14:15 14:15 WBC 6.6 (4.3-11.1) K/mcL RBC 5.12 (4.19-5.50) M/mcL Hgb 15.1 (12.9-16.9) g/dL Hct 47.8 (37.5-50.1) % MCV 93.4 (83.0-100.0) fL MCH 29.5 (28.0-33.3) pg MCHC 31.6 (31.6-35.5) g/dL RDW 13.2 (11.5-14.5) % Plt Count 136 L (140-400) K/mcL MPV 11.2 (9.4-12.4) fL Immature Gran % 0.5 (0-4) % Seg Neutrophils % 72.6 % Lymphocytes % 19.7 % Monocytes % 6.0 % Eosinophils % 0.9 % Basophils % 0.3 % Neutrophils # 4.8 (1.6-8.9) K/mcL Lymphocytes # 1.3 (0.6-4.6) K/mcL Monocytes # 0.4 (0.0-1.3) K/mcL Eosinophils # 0.1 (0.0-0.6) K/mcL Basophils # 0.0 (0.0-0.2) K/mcL PT 10.1 (9.4-12.1) Seconds INR 0.9 APTT 29.5 (26.0-36.0) Seconds D-Dimer 257 (0-500) ng/mLFEU Sodium (136-145) mEq/L Potassium (3.5-5.1) mEq/L Chloride (98-107) mEq/L Carbon Dioxide (23-29) mEq/L BUN (6-20) mg/dL Creatinine (0.70-1.30) mg/dL Est GFR ( Amer) (> 60) Est GFR (Non-Af Amer) (> 60) BUN/Creatinine Ratio (6-26) Glucose (70-105) mg/dL Calculated Osmolality (280-300) Calcium (8.6-10.3) mg/dL Troponin I (< 0.04) ng/mL B-Natriuretic Peptide 33 (Less than 100) pg/mL 11/21/17 11/21/17 Range/Units 14:15 14:15 WBC (4.3-11.1) K/mcL RBC (4.19-5.50) M/mcL Hgb (12.9-16.9) g/dL Hct (37.5-50.1) % MCV (83.0-100.0) fL MCH (28.0-33.3) pg MCHC (31.6-35.5) g/dL RDW (11.5-14.5) % Plt Count (140-400) K/mcL MPV (9.4-12.4) fL Immature Gran % (0-4) % Seg Neutrophils % % Lymphocytes % % Monocytes % % Eosinophils % % Basophils % % Neutrophils # (1.6-8.9) K/mcL Lymphocytes # (0.6-4.6) K/mcL Monocytes # (0.0-1.3) K/mcL Eosinophils # (0.0-0.6) K/mcL Basophils # (0.0-0.2) K/mcL PT (9.4-12.1) Seconds INR APTT (26.0-36.0) Seconds D-Dimer (0-500) ng/mLFEU Sodium 141 (136-145) mEq/L Potassium 4.8 (3.5-5.1) mEq/L Chloride 108 H (98-107) mEq/L Carbon Dioxide 29 (23-29) mEq/L BUN 34 H (6-20) mg/dL Creatinine 0.89 (0.70-1.30) mg/dL Est GFR ( Amer) > 60 (> 60) Est GFR (Non-Af Amer) > 60 (> 60) BUN/Creatinine Ratio 38 H (6-26) Glucose 241 H (70-105) mg/dL Calculated Osmolality 308 H (280-300) Calcium 9.2 (8.6-10.3) mg/dL Troponin I 0.03 (< 0.04) ng/mL B-Natriuretic Peptide (Less than 100) pg/mL - Radiology Data Radiology results reviewed: Yes I reviewed the patient's radiology results. Chest X-Ray 11/21/17 13:34 IMPRESSION: In this patient with cardiomegaly and vascular congestion, underlying CHF is suspected. Airspace changes asymmetric in the right lower lung zone with small pleural effusion likely associated. Clinical follow-up recommended to ensure improvement after a course of therapy and to exclude an underlying process. D/ / Avinash Chaparro MD / Avinash Chaparro MD Interpreting Provider: Avinash Chaparro MD - EKG Data EKG attestation: Yes I reviewed and interpreted this EKG. EKG shows normal: Reports: sinus rhythm Rate: Reports: normal Rhythm: Reports: NSR, PAC's Interpretation: Reports: no acute changes
[2017-11-21 14:25] LABS: Basophils % 0.3 %; Eosinophils # 0.1 K/mcL (0.0-0.6); Eosinophils % 0.9 %; Hematocrit 47.8 % (37.5-50.1); Hemoglobin 15.1 g/dL (12.9-16.9); Immature Granulocytes % 0.5 % (0-4); Lymphocytes # 1.3 K/mcL (0.6-4.6); Lymphocytes % 19.7 %; Mean Corpuscular HGB Conc 31.6 g/dL (31.6-35.5); Mean Corpuscular Hemoglobin 29.5 pg (28.0-33.3); Mean Corpuscular Volume 93.4 fL (83.0-100.0); Mean Platelet Volume 11.2 fL (9.4-12.4); Monocytes # 0.4 K/mcL (0.0-1.3); Neutrophils # 4.8 K/mcL (1.6-8.9); Platelet Count 136 K/mcL (140-400); Red Blood Count 5.12 M/mcL (4.19-5.50); Red Cell Distribution Width 13.2 % (11.5-14.5); Segmented Neutrophils % 72.6 %
[2017-11-21 14:30] LABS: INR 0.9; Prothrombin Time 10.1 Seconds (9.4-12.1)
[2017-11-21 14:32] LABS: Activated Partial Thrombo Time 29.5 Seconds (26.0-36.0)
[2017-11-21 14:41] LABS: BUN/Creatinine Ratio 38 (6-26); Blood Urea Nitrogen 34 mg/dL (6-20); Calcium 9.2 mg/dL (8.6-10.3); Carbon Dioxide 29 mEq/L (23-29); Chloride 108 mEq/L (98-107); Glucose 241 mg/dL (70-105); Osmolality,Calculated 308 (280-300); Potassium 4.8 mEq/L (3.5-5.1); Sodium 141 mEq/L (136-145); eGFR For African Americans > 60 (> 60); eGFR For Non-African Americans > 60 (> 60)
[2017-11-21] MEDS ORDERED: Naloxone 0.4 MG/ML INJ IVP PRN (16:53)
[2017-11-21] MEDS ORDERED: *HR* HYDROcodone/Acet 5/325 mg TABLET PO PRN (16:53)
[2017-11-21] MEDS: Ipratropium/Albuterol Neb 3 ML IH SCH (16:59)
[2017-11-21] MEDS ORDERED: *HR* Dextrose 50 % in Water (Syg) 50 ML SYRINGE IVP PRN (17:04)
[2017-11-21] MEDS ORDERED: D5% in Water 1,000 ML IVC PRN (17:04)
[2017-11-21] MEDS ORDERED: Dextrose Gel 15 GM/37.5 ML TUBE PO PRN ×2 (17:04)
[2017-11-21] MEDS ORDERED: Furosemide 40 MG/4 ML VIAL IVP SCH ×2 (17:15→21:00)
--- NOTE | 2017-11-21 17:56 | Event Note ---
Date of Encounter: 11/21/17 Time of Encounter: 17:51 Patient was seen and examined. I agree with the H&P as dicateted by Jassi Vasquez CNP. Patient here with what sounds like chronic shortness of breath on exertion since about September or so. Medical history includes obesity, hypertension, ZORAIDA on CPAP which he says he is compliant with. He also tells me he is about 2-3 L of nasal cannula oxygen on an as-needed basis. The patient came in with shortness of breath that started worsening. He was never really hypoxic in the ED. Saturations were in the 90s in about 2-3 L of O2 via nasal cannula. Chest x-ray with some vascular congestion. Laboratory workup including troponins , BNP and d-dimer is aware normal. The patient will be admitted to the hospitalist service. His examination is negative for any wheezes. He possibly does have some bibasilar crackles although not significant. He does have chronic lower extremity edema. The patient will be admitted to the hospitalist service. EKG was unremarkable with no ST or T-wave changes that are concerning. We will trend his cardiac enzymes. NPO after midnight for a stress test in the morning. If this comes back normal, I really believe the patient would benefit from a pulmonary follow- up in the outpatient setting to have formal pulmonary testings. In the meantime we will give him a trial of Lasix to see if that helps him any although I have a feeling that this is not going to help him much. I believe a lot of his issues are coming from obesity and he likely has obesity hypoventilation syndrome causing shortness of breath. He is encouraged to coninute CPAP at night. Main concern is to rule out ACS and the other issues can be addressed in the outpatient setting.
[2017-11-21 18:04] LABS: VBG HCO3 27 mEq/L (21-27); VBG PCO2 48 mmHg (41-51); VBG PH 7.36 pH Units (7.32-7.42); VBG PO2 100 mmHg (25-50)
--- NOTE | 2017-11-21 18:28 | Internal Med History&Physical ---
Date of Encounter: 11/21/17 Time of Encounter: 16:30 Assessment and Plan (1) Exertional dyspnea Current visit: Yes Status: Acute Acute exertional dyspnea for the past 5 days. Pt. reports he was dx w/ bronchitis and bronchiolitis in August 2017 and states his symptoms have not improved. Pt. was placed on abx for sx in August. No dx of COPD or CHF in hx. Uses home O2 PRN and CPAP HS. SpO2 in ED in 90's on 2-3L. CXR today shows cardiomegaly and vascular congestion with underlying CHF being suspected. Airspace changes asymmetric in the right lower lung zone with small pleural effusion likely associated. EKG unremarkable. Will trend troponins. Concern for possible anginal component of SOB d/t CXR so nuclear stress test ordered in a.m. Recommend outpatient pulmonology f/u for work-up if stress test normal. If abnormal, will consult cardiology. Pts. obesity a factor in current sx. Pt. discussed w/Dr. Cruz who agrees w/plan of care. Pt. is high risk for further morbidity d/t current SOB/dyspnea, CXR indication for possible CHF, worsening sx, chronic obesity, and hx/risk factors. Observation. (2) HLD (hyperlipidemia) Current visit: Yes Status: Chronic Hx of chronic HLD. Lipid panel in a.m. labs. Pt. does not currently take statin. Consider adding Lipitor based on lipid panel results. Qualifiers: Hyperlipidemia type: pure hypercholesterolemia Qualified Code(s): E78.00 - Pure hypercholesterolemia, unspecified; E78.0 - Pure hypercholesterolemia (3) HTN (hypertension) Current visit: Yes Status: Chronic Hx of chronic HTN. Monitor pt. and VS. Continue pts. Losartan/ hydrochlorothiazide. Qualifiers: Hypertension type: essential hypertension Qualified Code(s): I10 - Essential (primary) hypertension (4) ZORAIDA (obstructive sleep apnea) Current visit: Yes Status: Chronic Hx of ZORAIDA by dx. Reports he uses CPAP HS. CPAP ordered. (5) Obesity Current visit: Yes Status: Chronic Hx of obesity. Pt. is morbidly obese w/BMI of 57.4 which is contributing to his sx of dyspnea/SOB. Pt. counseled on need for weight loss. Qualifiers: Obesity type: unspecified obesity type Obesity classification: adult class 3 (BMI >= 40) Body mass index: BMI 50.0-59.9 Qualified Code(s): E66.9 - Obesity, unspecified; Z68.43 - Body mass index (BMI) 50-59.9 , adult; Z68.43 - Body mass index (BMI) 50-59.9 , adult; Z68.43 - Body mass index (BMI) 50-59.9 , adult; Z68.43 - Body mass index (BMI) 50-59.9 , adult (6) Peripheral edema Current visit: Yes Status: Chronic Hx of chronic peripheral edema. Continue pts. Losartan/hydrochlorothiazide. 1.5L daily fluid restriction. (7) Diabetes mellitus Current visit: Yes Status: Chronic Hx of diabetes controlled with insulin and oral anti-hyperglycemic medications. Hold oral medications, continue patient's insulin, and add low-dose correction insulin sliding scale with hypoglycemic protocol. BG checks ACHS. A1c in a.m. labs. 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 Monitor pt. for signs of bleeding. Internal Medicine - H&P: HPI Chief complaint: SOB/Dyspnea Admitted From: Emergency Dept Plans for Post Hospital Care: Home History of present illness: Mr. Ruano is a 51 year old male with medical history of asthma, diabetes controlled with insulin and oral anti-hyperglycemics, HLD, HTN, and PAD presents medial chief complaint shortness of breath and dyspnea since late August and early September. Patient states symptoms became more severe 5 days ago. Patient reports he is not dyspneic at rest but becomes severely dyspneic with exertion. Patient reports when necessary home O2 use and CPAP at night for apnea. Reports cardiology appointment in December and diagnosed with bronchitis and bronchiolitis in August 2017 and states symptoms have not resolved. Reports cough but denies recent illness, fever, chills, nausea, vomiting, headache, changes in vision, chest pain, palpitations, abdominal pain , diarrhea, constipation, dizziness, weakness, lightheadedness, pre-syncope, or syncope. Past Med Surg Social Fam HX - Past Medical History Source: patient, old records reviewed Medical history: asthma, diabetes, hyperlipidemia, hypertension, peripheral artery disease, other Psychiatric history: no psych history - Past Surgical History Surgical History: orthopedic, other (Left shoulder surgery) - Social History Smoking Status: Never smoker Alcohol use: none Drug use: none Occupational status: employed Current living situation: Home, With Family Activity Level: Independent ambulation Recent Out of Country Travel Within the Last 8 Weeks: No Exposure or Possible Exposure to Illness During Travel: No - Family History Father Race: Family Member Ethnicity: Non- Living Status: Still Living Hx Family Cardiac Disorders: Yes (CAD, Stent x1) Hx Family Cancer: Yes (Colon cancer) Hx Family Endocrine Disorder: Yes (Diabetes) Mother Race: Family Member Ethnicity: Non- Living Status: Still Living Hx Family Medical Disorders: No Brother Race: Family Member Ethnicity: Non- Living Status: Still Living Hx Family Endocrine Disorder: Yes (DM) Sister Race: Family Member Ethnicity: Non- Living Status: Still Living Hx Family Medical Disorders: No Internal Medicine - H&P: Meds Amitriptyline [Elavil] 25 mg PO HS 09/28/17 [History] Amlodipine Besylate 2.5 mg PO DAILY 09/28/17 [History] Ergocalciferol (VITAMIN D2) [Vitamin D2] 50,000 unit PO LAUGHLIN 09/28/17 [History] Gabapentin [Neurontin] 200 mg PO HS 09/28/17 [History] Ibuprofen [Motrin] 800 mg PO Q8HR 09/28/17 [History] Insulin ASPART [NovoLOG] 0 unit SQ BIDWM 09/28/17 [History] Insulin Glargine [Lantus] 50 unit SQ BID 09/28/17 [History] metFORMIN [Glucophage] 1,000 mg PO BIDWM 09/28/17 [History] Albuterol Sulfate [Albuterol Inhaler] 2 puff IH [id number] PRN #1 inhaler 10/01/17 [Rx] Ipratropium/Albuterol Neb [Duoneb] 3 ml IH [id number] PRN #30 inhsol 10/01/17 [Rx] Fluticasone/Salmeterol [Advair 100-50 Diskus] 1 each IH BID 11/21/17 [History] Losartan/Hydrochlorothiazide [Hyzaar 100-25 Tablet] 1 each PO DAILY 11/21/17 [ History] Multivitamin [Multivitamins] 1 each PO DAILY 11/21/17 [History] 3 Allergy/AdvReac Type Severity Reaction Status Date / Time clindamycin Allergy Chest Pain Verified 09/28/17 17:49 All Systems PM: A 10-system review of systems was performed and is negative for pertinent findings except as documented above in the HPI. - Constitutional Constitutional: no chills, no fever(s), no night sweats - EENT Eyes: no change in vision, no discharge, no pain, no photophobia Ears: no ear discharge, no ear pain, no tinnitus Nose, mouth and throat: no dysphagia, no nasal discharge, no neck pain, no sore throat - Breasts Breasts: as per HPI - Cardiovascular Cardiovascular ROS IM: as per HPI, dyspnea on exertion, edema, orthopnea, no chest pain, no diaphoresis, no lightheadedness, no palpitations, no syncope - Respiratory Respiratory: as per HPI, cough, dyspnea on exertion, no wheezing, no excessive phlegm production - Gastrointestinal Gastrointestinal: no abdominal pain, no diarrhea, no hematemesis, no hematochezia, no melena, no nausea, no vomiting - Genitourinary Genitourinary ROS male: as per HPI - Musculoskeletal Musculoskeletal ROS IM: no numbness, no tingling - Integumentary Integumentary IM: no rash, no unusual bruising - Neurological Neurological ROS: no confusion, no convulsions, no focal weakness, no numbness, no tingling, no tremor(s) - Psychiatric Psychiatric: as per HPI - Endocrine Endocrine IM: as per HPI - Hematologic/Lymphatic Hematologic/Lymphatic: no easy bruising - Allergic/Immunologic Allergic/Immunologic: as per HPI - Constitutional Vitals: Temp Pulse Resp BP Pulse Ox 98.8 F 93 14 167/89 93 11/21/17 13:30 11/21/17 17:56 11/21/17 17:56 11/21/17 17:56 02/19/18 17:56 General appearance: Present: cooperative, mild distress (SOB), A&O X 3, morbidly obese, pleasant, answers questions appropriately - Head Head exam: Present: atraumatic, normocephalic - Eye Eye exam: Present: PERRL, conjuntiva pink, sclera anicteric Pupils: Present: PERRL - ENT ENT exam: Present: normal exam - Neck Neck exam general surgery: Present: supple, trachea midline. Absent: lymphadenopathy - Respiratory Respiratory exam: Present: accessory muscle use, decreased breath sounds - Cardiovascular Cardiovascular exam: Present: RRR, +S1, +S2. Absent: diastolic murmur, gallop, rubs, systolic murmur - GI/Abdominal GI/Abdominal exam: Present: normal bowel sounds, soft, no peritoneal signs. Absent: distended, tenderness - Rectal Rectal exam: Present: deferred - Additional comments: exam deferred. - Extremities Exam Extremities exam: Present: pedal edema, warm, radial pulses palpable and symmetrical. Absent: calf tenderness, cyanotic - Back Exam Back exam: Present: normal inspection - Neurological Exam Neurological exam: Present: CN II-XII intact, oriented X3, no focal deficits. Absent: pronater drift, facial droop, speech deficit - Psychiatric Psychiatric exam: Present: normal affect, normal mood - Skin Skin exam: Present: dry, intact Internal Med - H&P Results - Labs CBC & Chem 7: 11/21/17 14:15 11/21/17 14:15 Labs: Short CBC 11/21/17 Range/Units 14:15 WBC 6.6 (4.3-11.1) K/mcL Hgb 15.1 (12.9-16.9) g/dL Hct 47.8 (37.5-50.1) % Plt Count 136 L (140-400) K/mcL Neutrophils # 4.8 (1.6-8.9) K/mcL BMP 11/21/17 14:15 Sodium 141 Potassium 4.8 Chloride 108 H Carbon Dioxide 29 BUN 34 H Creatinine 0.89 Glucose 241 H Calcium 9.2 Cardiac Enzymes 11/21/17 11/21/17 Range/Units 14:15 17:18 Troponin I 0.03 0.03 (< 0.04) ng/mL - ABG Interpretation ABG results: 11/21/17 18:00 VBG pH 7.36 VBG pCO2 48 VBG pO2 100 H VBG HCO3 27 - EKG Data EKG shows normal: sinus rhythm - EKG Data Prior EKG available for review: yes EKG comments: 11/21/17 18:33 EKG dated 09/28/17 shows sinus rhythm with short VT Interval, Poor R wave progression. EKG dated 11/21/17 shows sinus rhythm with short VT interval with occasional supraventricular premature complexes marked left axis deviation. - Impressions ITS Impressions Chest X-Ray 11/21/17 13:34 IMPRESSION: In this patient with cardiomegaly and vascular congestion, underlying CHF is suspected. Airspace changes asymmetric in the right lower lung zone with small pleural effusion likely associated. Clinical follow-up recommended to ensure improvement after a course of therapy and to exclude an underlying process. D/ / Avinash Chaparro MD / Avinash Chaparro MD Interpreting Provider: Avinash Chaparro MD - Diagnostic Studies Chest x-ray Additional comments: Impressions Chest X-Ray 11/21/17 13:34
[2017-11-21] MEDS ORDERED: NON-FORMULARY MEDICATION 1 EACH EACH (Insulin Glargine [Lantus] 50 UNIT) SQ SCH (21:00)
[2017-11-21] MEDS: *HR* Heparin 5,000 UNIT/ML VIAL SQ SCH ×2 (21:31→21:41)
[2017-11-21] MEDS: Gabapentin 100 MG CAPSULE PO SCH (21:39)
[2017-11-21] MEDS: Insulin LISPRO 300 UNITS/3 ML VIAL SQ SCH (21:39)
[2017-11-21] MEDS: Insulin DETEMIR 100 UNIT/ML X5UNITS SQ SCH (22:29)
[2017-11-22] MEDS ORDERED: methylPREDNISolone 125 MG/2 ML VIAL IVP SCH
[2017-11-22] MEDS: Budesonide/Formoterol 160/4.5 MDI IH SCH ×3 (00:01→19:41)
[2017-11-22] MEDS: Ipratropium/Albuterol Neb 3 ML IH SCH ×8 (00:01→22:43)
[2017-11-22 04:18] LABS: Basophils % 0.3 %; Eosinophils # 0.1 K/mcL (0.0-0.6); Hematocrit 48.4 % (37.5-50.1); Hemoglobin 15.2 g/dL (12.9-16.9); Immature Granulocytes % 0.7 % (0-4); Lymphocytes # 1.5 K/mcL (0.6-4.6); Lymphocytes % 25.4 %; Mean Corpuscular HGB Conc 31.4 g/dL (31.6-35.5); Mean Corpuscular Hemoglobin 29.8 pg (28.0-33.3); Mean Corpuscular Volume 94.9 fL (83.0-100.0); Mean Platelet Volume 11.6 fL (9.4-12.4); Monocytes # 0.4 K/mcL (0.0-1.3); Monocytes % 6.2 %; Platelet Count 130 K/mcL (140-400); Red Cell Distribution Width 13.2 % (11.5-14.5); Segmented Neutrophils % 66.4 %
[2017-11-22 04:33] LABS: Hemoglobin A1C 8.2 %
[2017-11-22 04:47] LABS: Alanine Aminotransferase 18 Units/L (7-52); Albumin 3.9 g/dL (3.5-5.7); Albumin/Globulin Ratio 1.6 (1.1-2.2); Alkaline Phosphatase 83 Units/L (34-104); Aspartate Amino Transferase 15 Units/L (13-39); BUN/Creatinine Ratio 32 (6-26); Bilirubin,Total 0.4 mg/dL (0.3-1.0); Blood Urea Nitrogen 26 mg/dL (6-20); Carbon Dioxide 28 mEq/L (23-29); Chloride 107 mEq/L (98-107); Chol/HDL Ratio 3.6 (0-4.9); Cholesterol 167 mg/dL (< 200); Globulin 2.4 g/dL (2.4-3.5); Glucose 246 mg/dL (70-105); HDL Cholesterol 46 mg/dL (40-59); LDL Cholesterol,Calculated 91 mg/dL (0-99); Osmolality,Calculated 305 (280-300); Potassium 4.4 mEq/L (3.5-5.1); Sodium 141 mEq/L (136-145); Total Protein 6.3 g/dL (6.4-8.9); Triglycerides 150 mg/dL (< 150); eGFR For African Americans > 60 (> 60); eGFR For Non-African Americans > 60 (> 60)
[2017-11-22] MEDS: *HR* Heparin 5,000 UNIT/ML VIAL SQ SCH ×3 (05:37→21:49)
[2017-11-22] MEDS ORDERED: Regadenoson 0.4 MG/5 ML SYRINGE IVP ONE (07:41)
--- NOTE | 2017-11-22 10:13 | Electrocardiograph Report ---
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
[2017-11-22] MEDS: Insulin LISPRO 300 UNITS/3 ML VIAL SQ SCH ×4 (10:42→21:42)
[2017-11-22] MEDS: Insulin DETEMIR 100 UNIT/ML X5UNITS SQ SCH ×2 (10:59→21:37)
[2017-11-22] MEDS: Acetaminophen 325 MG TABLET PO PRN (10:59)
[2017-11-22] MEDS: Multivit/Ca/Min/Fe/FA 1 TAB TABLET PO SCH (10:59)
[2017-11-22] MEDS: Losartan/HCTZ 50-12.5 TABLET PO SCH (10:59)
--- NOTE | 2017-11-22 17:27 | Internal Med Progress Note ---
Date of Encounter: 11/22/17 Time of Encounter: 17:17 - Assessment and plan (1) Exertional dyspnea Current Visit: Yes Status: Acute Assessment and plan: Acute exertional dyspnea for the previous 5 days. He was treated for bronchitis and bronchiolitis in August 2017 and stated his symptoms have not really improved He was on antibiotics in August. No history of COPD or CHF. He uses home oxygen on a when necessary basis and CPAP at bedtime. His SPO2 in the ED was 90 % on 2-3 L oxygen. Chest x-ray was reviewed and showed cardiomegaly and vascular congestion with underlying CHF suspected. Airspace changes asymmetric in the right lower lung zone with a small pleural effusion which are likely associated Troponins were trended and remained negative Possible anginal component of the shortness of breath. Nuclear stress test step one completed today, will complete step 2 in the morning Recommend outpatient follow-up for workup if stress test is normal If abnormal will consult cardiology. Patient's morbid obesity with BMI of 57.4 is contributing factor. (2) HLD (hyperlipidemia) Current Visit: Yes Status: Chronic Assessment and plan: History of chronic hyperlipidemia, is not currently taking a statin. Lipid panel reviewed with triglycerides of 150, cholesterol 167, LDL 91, HDL 46 Qualifiers: Hyperlipidemia type: unspecified Qualified Code(s): E78.5 - Hyperlipidemia , unspecified (3) HTN (hypertension) Current Visit: Yes Status: Chronic Assessment and plan: History of chronic hypertension contributed to by morbid obesity Blood pressure is stable Continue losartan and hydrochlorothiazide Qualifiers: Hypertension type: essential hypertension Qualified Code(s): I10 - Essential (primary) hypertension (4) ZORAIDA (obstructive sleep apnea) Current Visit: No Status: Chronic Assessment and plan: Continue CPAP and patient with history of obstructive sleep apnea (5) Obesity, morbid, BMI 50 or higher Current Visit: Yes Status: Acute Assessment and plan: Patient needs to consider weight loss reduction plans. He is morbidly obese with a BMI of 57.4 (6) DVT prophylaxis Current Visit: Yes Status: Acute Assessment and plan: Heparin 5000 units subcutaneous every 8 hours (7) Diabetes mellitus Current Visit: Yes Status: Chronic Assessment and plan: History of diabetes on insulin and oral antihyperglycemic medications. We will hold his oral medications and continue insulin as well as a low dose correction insulin sliding scale with hypoglycemic protocol and Accu-Cheks before meals and at bedtime. Hemoglobin A1c 8.2 Qualifiers: Diabetes mellitus type: type 2 Diabetes mellitus complication status: with unspecified complications Diabetes mellitus terminal block assembler insulin use: with terminal block assembler use Qualified Code(s): E11.8 - Type 2 diabetes mellitus with unspecified complications; Z79.4 - halfway (current) use of insulin; Z79.4 - director long term care ( current) use of insulin; Z79.4 - halfway (current) use of insulin; Z79.4 - director long term care (current) use of insulin (8) Peripheral edema Current Visit: Yes Status: Chronic Assessment and plan: History of chronic peripheral edema likely multifactorial considering obstructive sleep apnea and obesity. 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 He denies any chest pain shortness of breath fever chills abdominal discomfort. He states he just wants to find out what has been causing his symptoms. He has no questions and will complete step 2 of his 2 step stress test in the a.m. - Constitutional Vitals: Temp Pulse Resp BP Pulse Ox 98.6 F 93 14 153/79 93 11/22/17 15:34 11/22/17 15:34 11/22/17 16:30 11/22/17 16:30 11/22/17 16:30 General appearance: Present: cooperative, A&O X 3, morbidly obese, pleasant, answers questions appropriately - Head Head exam: Present: atraumatic, normocephalic - Eye Eye exam: Present: PERRL, conjuntiva pink, sclera anicteric Pupils: Present: PERRL - Neck Neck exam general surgery: Present: supple, trachea midline. Absent: lymphadenopathy - Respiratory Respiratory exam: Present: CTAB. Absent: accessory muscle use, rales, rhonchi, wheezes - Cardiovascular Cardiovascular exam: Present: distant heart sounds, RRR, +S1, +S2. Absent: diastolic murmur, gallop, rubs, systolic murmur - GI/Abdominal GI/Abdominal exam: Present: normal bowel sounds, soft, no peritoneal signs. Absent: distended, tenderness - Extremities Exam Extremities exam: Present: warm, radial pulses palpable and symmetrical. Absent : calf tenderness, cyanotic, pedal edema - Neurological Exam Neurological exam: Present: CN II-XII intact, oriented X3, no focal deficits. Absent: pronater drift, facial droop, speech deficit - Skin Skin exam: Present: dry, intact, warm Internal Medicine: Result - Labs CBC & Chem 7: 11/22/17 03:27 11/22/17 03:27 Labs: Short CBC 11/22/17 Range/Units 03:27 WBC 6.0 (4.3-11.1) K/mcL Hgb 15.2 (12.9-16.9) g/dL Hct 48.4 (37.5-50.1) % Plt Count 130 L (140-400) K/mcL Neutrophils # 4.0 (1.6-8.9) K/mcL BMP 11/22/17 03:27 Sodium 141 Potassium 4.4 Chloride 107 Carbon Dioxide 28 BUN 26 H Creatinine 0.81 Glucose 246 H Calcium 9.0 Cardiac Enzymes 11/22/17 Range/Units 03:27 Troponin I 0.03 (< 0.04) ng/mL Liver Function 11/22/17 Range/Units 03:27 Total Bilirubin 0.4 (0.3-1.0) mg/dL AST 15 (13-39) Units/L ALT 18 (7-52) Units/L Alkaline Phosphatase 83 (34-104) Units/L Albumin 3.9 (3.5-5.7) g/dL - ABG Interpretation ABG results: PT/INR, D-dimer PT 10.1 Seconds (9.4-12.1) 11/21/17 14:15 D-Dimer 257 ng/mLFEU (0-500) 11/21/17 14:15 Consult Discharge Plan - Plan Referrals: Johnna Stern, [employer]IATE [Primary Care Provider] -
[2017-11-22] MEDS: Gabapentin 100 MG CAPSULE PO SCH (21:37)
[2017-11-23] MEDS: Ipratropium/Albuterol Neb 3 ML IH SCH ×6 (04:37→23:34)
[2017-11-23] MEDS: *HR* Heparin 5,000 UNIT/ML VIAL SQ SCH ×3 (06:16→21:23)
[2017-11-23 07:04] LABS: Basophils % 0.5 %; Eosinophils # 0.1 K/mcL (0.0-0.6); Eosinophils % 1.3 %; Hemoglobin 16.2 g/dL (12.9-16.9); Immature Granulocytes % 0.5 % (0-4); Lymphocytes # 1.4 K/mcL (0.6-4.6); Lymphocytes % 22.1 %; Mean Corpuscular HGB Conc 31.8 g/dL (31.6-35.5); Mean Corpuscular Hemoglobin 29.5 pg (28.0-33.3); Mean Corpuscular Volume 92.9 fL (83.0-100.0); Mean Platelet Volume 11.1 fL (9.4-12.4); Monocytes # 0.4 K/mcL (0.0-1.3); Monocytes % 6.2 %; Neutrophils # 4.4 K/mcL (1.6-8.9); Platelet Count 143 K/mcL (140-400); Red Blood Count 5.49 M/mcL (4.19-5.50); Red Cell Distribution Width 13.1 % (11.5-14.5); Segmented Neutrophils % 69.4 %
[2017-11-23 07:31] LABS: Alanine Aminotransferase 18 Units/L (7-52); Albumin/Globulin Ratio 1.5 (1.1-2.2); Alkaline Phosphatase 89 Units/L (34-104); Aspartate Amino Transferase 15 Units/L (13-39); BUN/Creatinine Ratio 27 (6-26); Bilirubin,Total 0.5 mg/dL (0.3-1.0); Blood Urea Nitrogen 19 mg/dL (6-20); Carbon Dioxide 30 mEq/L (23-29); Chloride 105 mEq/L (98-107); Globulin 2.7 g/dL (2.4-3.5); Glucose 185 mg/dL (70-105); Osmolality,Calculated 297 (280-300); Potassium 4.4 mEq/L (3.5-5.1); Sodium 140 mEq/L (136-145); Total Protein 6.7 g/dL (6.4-8.9); eGFR For African Americans > 60 (> 60); eGFR For Non-African Americans > 60 (> 60)
[2017-11-23] MEDS: Budesonide/Formoterol 160/4.5 MDI IH SCH ×2 (07:31→20:05)
[2017-11-23] MEDS: Insulin LISPRO 300 UNITS/3 ML VIAL SQ SCH ×4 (09:02→21:22)
[2017-11-23] MEDS: Acetaminophen 325 MG TABLET PO PRN (09:03)
[2017-11-23] MEDS: Multivit/Ca/Min/Fe/FA 1 TAB TABLET PO SCH (09:03)
[2017-11-23] MEDS: Insulin DETEMIR 100 UNIT/ML X5UNITS SQ SCH ×2 (09:04→21:22)
[2017-11-23] MEDS: Losartan/HCTZ 50-12.5 TABLET PO SCH (09:04)
--- NOTE | 2017-11-23 17:55 | Internal Med Progress Note ---
Date of Encounter: 11/23/17 Time of Encounter: 17:51 - Assessment and plan (1) Exertional dyspnea Current Visit: Yes Status: Acute Assessment and plan: Acute exertional dyspnea for the previous 5 days. He was treated for bronchitis and bronchiolitis in August 2017 and stated his symptoms have not really improved He was on antibiotics in August. No history of COPD or CHF. He uses home oxygen on a when necessary basis and CPAP at bedtime. His SPO2 in the ED was 90 % on 2-3 L oxygen. Chest x-ray was reviewed and showed cardiomegaly and vascular congestion with underlying CHF suspected. Airspace changes asymmetric in the right lower lung zone with a small pleural effusion which are likely associated Troponins were trended and remained negative Possible anginal component of the shortness of breath. Nuclear stress test completed with no ischemia or infarct Repeated chest x-ray and BNP Suggestive of pneumonitis versus pulmonary overload Trial Lasix 20 IV twice a day Check echocardiogram in the a.m. Consult pulmonary, discussed with them this evening he will see the patient tomorrow Patient's morbid obesity with BMI of 57.4 is contributing factor the patient states he was on vacation August and walk continuously with no dyspnea or exertional dyspnea. He states this always new over the last month or so. (2) HLD (hyperlipidemia) Current Visit: Yes Status: Chronic Assessment and plan: History of hyperlipidemia, is not currently taking a statin. Lipid panel reviewed with triglycerides of 150, cholesterol 167, LDL 91, HDL 46 Qualifiers: Hyperlipidemia type: unspecified Qualified Code(s): E78.5 - Hyperlipidemia , unspecified (3) HTN (hypertension) Current Visit: Yes Status: Chronic Assessment and plan: History of chronic hypertension contributed to by morbid obesity Blood pressure stable Continue losartan and hydrochlorothiazide Qualifiers: Hypertension type: essential hypertension Qualified Code(s): I10 - Essential (primary) hypertension (4) ZORAIDA (obstructive sleep apnea) Current Visit: No Status: Chronic Assessment and plan: Continue CPAP in patient with history of obstructive sleep apnea (5) Obesity, morbid, BMI 50 or higher Current Visit: Yes Status: Acute Assessment and plan: Patient needs to consider weight loss reduction plans, morbidly obese with a BMI of 57.4 States he is watching his carbs at this time and thinks he has lost a little weight (6) DVT prophylaxis Current Visit: Yes Status: Acute Assessment and plan: Heparin 5000 units subcutaneous q 8 hours (7) Diabetes mellitus Current Visit: Yes Status: Chronic Assessment and plan: History of diabetes on insulin and oral antihyperglycemic medications. Hold his oral medications and continue insulin as well as a low dose correction insulin sliding scale with hypoglycemic protocol and Accu-Cheks before meals and at bedtime. Hemoglobin A1c 8.2 Qualifiers: Diabetes mellitus type: type 2 Diabetes mellitus complication status: with unspecified complications Diabetes mellitus roving department end finder insulin use: with roving department end finder use Qualified Code(s): E11.8 - Type 2 diabetes mellitus with unspecified complications; Z79.4 - linoleum floor layer (current) use of insulin; Z79.4 - linoleum floor layer ( current) use of insulin; Z79.4 - [facility] (current) use of insulin; Z79.4 - linoleum floor layer (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 Continue 1.5 daily fluid restriction and continue valsartan and hydrochlorothiazide - Subjective Interval history: Patient is sitting up in the bed with his at the bedside. His stress test was completed today and he did well. Patient still is very dyspneic on minimal exertion. He states he can hardly make it from the bed to the bathroom. He stated he was on vacation in August and they walked everywhere and he had no difficulties whatsoever but over the last weeks he just has found himself being very fatigued and short of breath with minimal exertion. Discussed some plan options and he is in agreement. He denies any chest pain, fever, chills, diaphoresis, cough, sputum production, syncope or dizziness. - Constitutional Vitals: Temp Pulse Resp BP Pulse Ox 97.8 F 92 18 122/67 96 11/23/17 14:57 11/23/17 14:57 11/23/17 15:32 11/23/17 14:57 11/23/17 15:32 General appearance: Present: cooperative, A&O X 3, morbidly obese, pleasant, answers questions appropriately - Head Head exam: Present: atraumatic, normocephalic - Eye Eye exam: Present: PERRL, conjuntiva pink, sclera anicteric Pupils: Present: PERRL - Neck Neck exam general surgery: Present: supple, trachea midline. Absent: lymphadenopathy - Respiratory Respiratory exam: Present: decreased breath sounds, CTAB. Absent: accessory muscle use, rales, rhonchi, wheezes Additional comments: Dyspneic on exertion - Cardiovascular Cardiovascular exam: Present: distant heart sounds, RRR, +S1, +S2. Absent: diastolic murmur, gallop, rubs, systolic murmur - GI/Abdominal GI/Abdominal exam: Present: normal bowel sounds, soft, no peritoneal signs. Absent: distended, tenderness Additional comments: obese - Extremities Exam Extremities exam: Present: warm, radial pulses palpable and symmetrical. Absent : calf tenderness, cyanotic, pedal edema - Neurological Exam Neurological exam: Present: CN II-XII intact, oriented X3, no focal deficits. Absent: pronater drift, facial droop, speech deficit - Skin Skin exam: Present: dry, intact, warm Internal Medicine: Result - Labs CBC & Chem 7: 11/23/17 06:24 11/23/17 06:24 Labs: Short CBC 11/23/17 Range/Units 06:24 WBC 6.3 (4.3-11.1) K/mcL Hgb 16.2 (12.9-16.9) g/dL Hct 51.0 H (37.5-50.1) % Plt Count 143 (140-400) K/mcL Neutrophils # 4.4 (1.6-8.9) K/mcL BMP 11/23/17 06:24 Sodium 140 Potassium 4.4 Chloride 105 Carbon Dioxide 30 H BUN 19 Creatinine 0.71 Glucose 185 H Calcium 9.0 Liver Function 11/23/17 Range/Units 06:24 Total Bilirubin 0.5 (0.3-1.0) mg/dL AST 15 (13-39) Units/L ALT 18 (7-52) Units/L Alkaline Phosphatase 89 (34-104) Units/L Albumin 4.0 (3.5-5.7) g/dL - ABG Interpretation ABG results: PT/INR, D-dimer PT 10.1 Seconds (9.4-12.1) 11/21/17 14:15 D-Dimer 257 ng/mLFEU (0-500) 11/21/17 14:15 - Impressions Impressions Chest X-Ray 11/23/17 13:13 IMPRESSION: Overall stable appearance of the chest in a patient with suspected CHF. Superimposed pneumonitis in the right lower lobe cannot be excluded. D/ / Avinash Chaparro MD / Avinash Chaparro MD Interpreting Provider: Avinash Chaparro MD Consult Discharge Plan - Plan Referrals: [facility] [Provider Group] Johnna Stern CNP [Primary Care Provider] -
[2017-11-23] MEDS: Furosemide 20 MG/2 ML VIAL IVP SCH (18:38)
[2017-11-23] MEDS: Gabapentin 100 MG CAPSULE PO SCH (21:22)
[2017-11-24] MEDS: Ipratropium/Albuterol Neb 3 ML IH SCH ×6 (03:25→23:26)
[2017-11-24 04:34] LABS: Basophils % 0.3 %; Eosinophils # 0.1 K/mcL (0.0-0.6); Eosinophils % 1.1 %; Hematocrit 47.8 % (37.5-50.1); Hemoglobin 15.6 g/dL (12.9-16.9); Immature Granulocytes % 0.3 % (0-4); Lymphocytes # 1.5 K/mcL (0.6-4.6); Lymphocytes % 24.3 %; Mean Corpuscular HGB Conc 32.6 g/dL (31.6-35.5); Mean Corpuscular Volume 91.9 fL (83.0-100.0); Mean Platelet Volume 10.9 fL (9.4-12.4); Monocytes # 0.5 K/mcL (0.0-1.3); Monocytes % 7.2 %; Neutrophils # 4.2 K/mcL (1.6-8.9); Platelet Count 124 K/mcL (140-400); Red Cell Distribution Width 13.2 % (11.5-14.5); Segmented Neutrophils % 66.8 %
[2017-11-24 04:54] LABS: Alanine Aminotransferase 17 Units/L (7-52); Albumin/Globulin Ratio 1.6 (1.1-2.2); Alkaline Phosphatase 92 Units/L (34-104); Aspartate Amino Transferase 13 Units/L (13-39); BUN/Creatinine Ratio 29 (6-26); Bilirubin,Total 0.5 mg/dL (0.3-1.0); Blood Urea Nitrogen 22 mg/dL (6-20); Calcium 9.4 mg/dL (8.6-10.3); Carbon Dioxide 29 mEq/L (23-29); Chloride 102 mEq/L (98-107); Globulin 2.5 g/dL (2.4-3.5); Glucose 278 mg/dL (70-105); Osmolality,Calculated 299 (280-300); Potassium 4.2 mEq/L (3.5-5.1); Sodium 138 mEq/L (136-145); Total Protein 6.5 g/dL (6.4-8.9); eGFR For African Americans > 60 (> 60); eGFR For Non-African Americans > 60 (> 60)
[2017-11-24] MEDS: *HR* Heparin 5,000 UNIT/ML VIAL SQ SCH ×3 (05:37→20:46)
[2017-11-24] MEDS: Acetaminophen 325 MG TABLET PO PRN (05:43)
[2017-11-24] MEDS: Budesonide/Formoterol 160/4.5 MDI IH SCH ×2 (08:03→20:07)
[2017-11-24] MEDS: Insulin DETEMIR 100 UNIT/ML X5UNITS SQ SCH ×2 (08:44→20:46)
[2017-11-24] MEDS: Insulin LISPRO 300 UNITS/3 ML VIAL SQ SCH ×4 (08:44→20:47)
[2017-11-24] MEDS: Multivit/Ca/Min/Fe/FA 1 TAB TABLET PO SCH (08:44)
[2017-11-24] MEDS: Furosemide 20 MG/2 ML VIAL IVP SCH ×2 (08:44→18:14)
[2017-11-24] MEDS: Losartan/HCTZ 50-12.5 TABLET PO SCH (08:45)
[2017-11-24] MEDS ORDERED: Perflutren Lipid Microsphere 1.3 ML in 0.9 % Sodium Chloride 8.7 ML IVP ONE (12:56)
[2017-11-24] MEDS ORDERED: Dextrose Gel 15 GM/37.5 ML TUBE PO PRN (16:00)
--- NOTE | 2017-11-24 17:07 | Internal Med Progress Note ---
Date of Encounter: 11/24/17 Time of Encounter: 17:05 - Assessment and plan (1) Exertional dyspnea Current Visit: Yes Status: Acute Assessment and plan: Acute exertional dyspnea for previous 5 daysbefore admission. He was treated for bronchitis and bronchiolitis in August 2017 and stated his symptoms have not really improved He was on antibiotics in August. No history of COPD or CHF. He uses home oxygen on a when necessary basis and CPAP at bedtime. His SPO2 in the ED was 90 % on 2-3 L oxygen. Chest x-ray was reviewed and showed cardiomegaly and vascular congestion with underlying CHF suspected. Airspace changes asymmetric in the right lower lung zone with a small pleural effusion which are likely associated Troponins were trended and remained negative Possible anginal component of the shortness of breath. Nuclear stress test completed with no ischemia or infarct Repeated chest x-ray and BNP Suggestive of pneumonitis versus pulmonary overload Lasix 20 IV twice a day Echocardiogram report pending Consult pulmonary Obtain ct of chest Start levaquin by mouth and prednisone 40 mg daily. According to college hire he will require an extended two-week taper on discharge Patient's morbid obesity with BMI of 57.4 is contributing factor the patient states he was on vacation August and walk continuously with no dyspnea or exertional dyspnea. He states this always new over the last month or so. (2) HLD (hyperlipidemia) Current Visit: Yes Status: Chronic Assessment and plan: History of hyperlipidemia, is not currently taking statin. Lipid panel reviewed with triglycerides of 150, cholesterol 167, LDL 91, HDL 46 Qualifiers: Hyperlipidemia type: unspecified Qualified Code(s): E78.5 - Hyperlipidemia , unspecified (3) HTN (hypertension) Current Visit: Yes Status: Chronic Assessment and plan: History of chronic hypertension contributed to by morbid obesity Blood pressure stable Continue losartan and hydrochlorothiazide Qualifiers: Hypertension type: essential hypertension Qualified Code(s): I10 - Essential (primary) hypertension (4) ZORAIDA (obstructive sleep apnea) Current Visit: No Status: Chronic Assessment and plan: will order cpap with home settings, CPAP in patient with history of obstructive sleep apnea (5) Obesity, morbid, BMI 50 or higher Current Visit: Yes Status: Acute Assessment and plan: Patient needs to consider weight loss reduction plans morbidly obese with a BMI of 57.4 States he is watching his carbs at this time and thinks he has lost a little weight (6) DVT prophylaxis Current Visit: Yes Status: Acute Assessment and plan: Heparin 5000 units subcutaneous q 8 hrs (7) Diabetes mellitus Current Visit: Yes Status: Chronic Assessment and plan: History of diabetes on insulin and oral antihyperglycemic medications. Hold his oral medications. continue scheduled insulin and will increase corrective dose to the high sliding scale before meals and at bedtime as his glucoses are consistently elevated and he is going to be on steroids Hemoglobin A1c 8.2 Qualifiers: Diabetes mellitus type: type 2 Diabetes mellitus complication status: with unspecified complications Diabetes mellitus senior living insulin use: with senior living use Qualified Code(s): E11.8 - Type 2 diabetes mellitus with unspecified complications; Z79.4 - [facility] (current) use of insulin; Z79.4 - [facility] ( current) use of insulin; Z79.4 - [facility] (current) use of insulin; Z79.4 - [facility] (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 Continue 1.5 daily fluid restriction and continue valsartan and hydrochlorothiazide - Subjective Interval history: Patient is sitting up in the bed. He had no chest pain or fever or chills sweats abdominal pain or diarrhea overnight. He is still dyspneic on minimal exertion. - Constitutional Vitals: Temp Pulse Resp BP Pulse Ox 97.9 F 93 20 135/83 92 11/24/17 15:50 11/24/17 15:50 11/24/17 15:50 11/24/17 15:50 11/24/17 15:50 General appearance: Present: cooperative, A&O X 3, morbidly obese, pleasant, answers questions appropriately - Head Head exam: Present: atraumatic, normocephalic - Eye Eye exam: Present: PERRL, conjuntiva pink, sclera anicteric Pupils: Present: PERRL - Neck Neck exam general surgery: Present: supple, trachea midline. Absent: lymphadenopathy - Respiratory Respiratory exam: Present: decreased breath sounds, CTAB, wheezes. Absent: accessory muscle use, rales, respiratory distress, rhonchi - Cardiovascular Cardiovascular exam: Present: RRR, +S1, +S2. Absent: diastolic murmur, gallop, rubs, systolic murmur - GI/Abdominal GI/Abdominal exam: Present: normal bowel sounds, soft, no peritoneal signs. Absent: distended, tenderness - Extremities Exam Extremities exam: Present: pedal edema, warm, radial pulses palpable and symmetrical. Absent: calf tenderness, cyanotic, tenderness - Neurological Exam Neurological exam: Present: CN II-XII intact, oriented X3, no focal deficits. Absent: pronater drift, facial droop, speech deficit - Skin Skin exam: Present: dry, intact, warm Internal Medicine: Result - Labs CBC & Chem 7: 11/24/17 03:53 11/24/17 03:53 Labs: Short CBC 11/24/17 Range/Units 03:53 WBC 6.3 (4.3-11.1) K/mcL Hgb 15.6 (12.9-16.9) g/dL Hct 47.8 (37.5-50.1) % Plt Count 124 L (140-400) K/mcL Neutrophils # 4.2 (1.6-8.9) K/mcL BMP 11/24/17 03:53 Sodium 138 Potassium 4.2 Chloride 102 Carbon Dioxide 29 BUN 22 H Creatinine 0.77 Glucose 278 H Calcium 9.4 Liver Function 11/24/17 Range/Units 03:53 Total Bilirubin 0.5 (0.3-1.0) mg/dL AST 13 (13-39) Units/L ALT 17 (7-52) Units/L Alkaline Phosphatase 92 (34-104) Units/L Albumin 4.0 (3.5-5.7) g/dL - ABG Interpretation ABG results: PT/INR, D-dimer PT 10.1 Seconds (9.4-12.1) 11/21/17 14:15 D-Dimer 257 ng/mLFEU (0-500) 11/21/17 14:15 - Impressions Impressions Echocardiogram 11/24/17 17:49 Impressions: Technically sub-optimal due to body habitus. LVEF 50-55%. Mildly dilated left ventricle. Mild concentric left ventricular hypertrophy. Right ventricle was not well evaluated. Grossly, it appears dilated. Mild left ventricular diastolic dysfunction. Unable to estimate RVSP due to lack of TR jet. Valves were not well visualized. No obvious significant dysfunction noted. Findings: Study Quality * Technically sub-optimal due to body habitus. ECG Findings * Normal sinus rhythm. Left Ventricle * LVEF 50-55%. * Mildly dilated left ventricle. * Mild concentric left ventricular hypertrophy. * Mild left ventricular diastolic dysfunction. Right Ventricle * Right ventricle was not well evaluated. Grossly, it appears dilated. Left Atrium * Left atrium is not well visualized. Right Atrium * Right atrium is not well visualized. Interatrial Septum * Interatrial septum not well evaluated. Aortic Valve * Aortic valve not well visualized. * No aortic regurgitation. * No aortic stenosis. Mitral Valve * Mitral valve not well visualized. * No mitral regurgitation. * No mitral stenosis. Tricuspid Valve * Tricuspid valve not well visualized. * No tricuspid regurgitation. * Unable to estimate RVSP due to lack of TR jet. Pulmonic Valve * Pulmonic valve not well visualized. Aorta * Normally sized aortic root. Pericardium * The pericardium appears normal. IVC * The IVC is not well evaluated. Pulmonary Artery * Pulmonary artery not well visualized. Consult Discharge Plan - Plan Referrals: [facility] [Provider Group] Johnna Stern CNP [Primary Care Provider] -
[2017-11-24] MEDS: predniSONE 20 MG TABLET PO SCH (18:13)
[2017-11-24] MEDS: Levofloxacin 750 MG/150 ML 750 MG/150 ML BAG IVPB SCH (18:14)
--- NOTE | 2017-11-24 19:19 | Pulmonology Consult Note ---
Date of Encounter: 11/24/17 Time of Encounter: 15:00 Assessment and Plan (1) Acute respiratory failure Current Visit: Yes Status: Acute Multifactorial Asthmatic bronchitis exacerbation and diastolic heart failure to Keep O2 supplementation around Sats of 94% Qualifiers: Respiratory failure complication: hypoxia Qualified Code(s): J96.01 - Acute respiratory failure with hypoxia (2) Asthmatic bronchitis with acute exacerbation Current Visit: Yes Status: Acute Complicated by chronic sinus congestion with post nasal drip that triggers the airway inflammation will need Levaquin for 14 days . Will Do steroid taper atleast for 2 weeks . To send home Albuterol nebulizer and Symbicort with follow up in pulmonary clinic in 4-6 weeks Qualifiers: Asthma severity: mild Asthma persistence: intermittent Qualified Code(s) : J45.21 - Mild intermittent asthma with (acute) exacerbation (3) Obesity hypoventilation syndrome Current Visit: Yes Status: Chronic To continue BIPAP 17/13 in the night (4) ZORAIDA (obstructive sleep apnea) Current Visit: Yes Status: Acute ZORAIDA treated with BIPAP 17/13 counseled the treatment for ZORAIDA will reduce asthmatic bronchitis exacerbation and it will also help the diastolic heart failure (5) Diastolic heart failure Current Visit: Yes Status: Acute Patient has LVH secondary to HTN with diastolic dysfunction in the ECHO to continue diuresis . Qualifiers: Heart failure chronicity: acute on chronic Qualified Code(s): I50.33 - Acute on chronic diastolic (congestive) heart failure History of Present Illness Consult date: 11/24/17 Requesting physician: Migdalia Lockett Reason for consult: asthma, obstructive sleep apnea Chief complaint: shortness of breadth on exertion History of present illness: 51 year old male with past medical history significant for Morbid obesity ZORAIDA and OHS , Now with diastolic heart failure with ECHO shows dilated LV and left ventricular hypertrophy with EF 50% comes with on and off shortness of breadth over 3 months which became worsen over 5 days , says he has some shortness of breadth with tightness in the throat on exertion , Stress test was found to be negative sometimes he gets wheezing which gets worsen in rapid change in temperature patient says he has chronic sinus drainage with post nasal drip , denies any fever or chills denies any sick contact . Patient denies any GERD or Neurological symptoms . Pulmonary was consulted for worsening shortness of breadth . Past Med Surg Social Fam HX - Past Medical History Medical history: asthma, diabetes, hyperlipidemia, hypertension, peripheral artery disease, other Psychiatric history: no psych history - Past Surgical History Surgical History: orthopedic, other - Social History Smoking Status: Never smoker Alcohol use: none Drug use: none - Family History Father Race: Family Member Ethnicity: Non- Living Status: Still Living Hx Family Cardiac Disorders: Yes (CAD, Stent x1) Hx Family Cancer: Yes (Colon cancer) Hx Family Endocrine Disorder: Yes (Diabetes) Mother Race: Family Member Ethnicity: Non- Living Status: Still Living Hx Family Medical Disorders: No Brother Race: Family Member Ethnicity: Non- Living Status: Still Living Hx Family Endocrine Disorder: Yes (DM) Sister Race: Family Member Ethnicity: Non- Living Status: Still Living Hx Family Medical Disorders: No Medications and Allergies Amitriptyline [Elavil] 25 mg PO HS 09/28/17 [History] Amlodipine Besylate 2.5 mg PO DAILY 09/28/17 [History] Ergocalciferol (VITAMIN D2) [Vitamin D2] 50,000 unit PO LAUGHLIN 09/28/17 [History] Gabapentin [Neurontin] 200 mg PO HS 09/28/17 [History] Ibuprofen [Motrin] 800 mg PO Q8HR 09/28/17 [History] Insulin ASPART [NovoLOG] 0 unit SQ BIDWM 09/28/17 [History] Insulin Glargine [Lantus] 50 unit SQ BID 09/28/17 [History] metFORMIN [Glucophage] 1,000 mg PO BIDWM 09/28/17 [History] Albuterol Sulfate [Albuterol Inhaler] 2 puff IH [id number] PRN #1 inhaler 10/01/17 [Rx] Ipratropium/Albuterol Neb [Duoneb] 3 ml IH [id number] PRN #30 inhsol 10/01/17 [Rx] Fluticasone/Salmeterol [Advair 100-50 Diskus] 1 each IH BID 11/21/17 [History] Losartan/Hydrochlorothiazide [Hyzaar 100-25 Tablet] 1 each PO DAILY 11/21/17 [ History] Multivitamin [Multivitamins] 1 each PO DAILY 11/21/17 [History] 3 Allergy/AdvReac Type Severity Reaction Status Date / Time clindamycin Allergy Chest Pain Verified 09/28/17 17:49 All Systems: The remainder of the systems were reviewed found to be negative Physical Examination Auscultation: bilateral: diminished breath sounds (basilar diminished breadth sounds ), wheezes Gastrointestinal: other (obese abdomen ) Extremities: edema (bilateral pitting pedal edema ) Results - Laboratory Findings CBC and BMP: 11/24/17 03:53 11/24/17 03:53 PT/INR, D-dimer PT 10.1 Seconds (9.4-12.1) 11/21/17 14:15 D-Dimer 257 ng/mLFEU (0-500) 11/21/17 14:15 Abnormal lab findings: Abnormal lab results Plt Count 124 K/mcL (140-400) L 11/24/17 03:53 VBG pO2 100 mmHg (25-50) H 11/21/17 18:00 BUN 22 mg/dL (6-20) H 11/24/17 03:53 BUN/Creatinine Ratio 29 (6-26) H 11/24/17 03:53 Glucose 278 mg/dL (70-105) H 11/24/17 03:53 POC Glucose 279 (58-89) H 11/23/17 21:00 Hemoglobin A1c 8.2 % (-5.6) H 11/22/17 03:27 Triglycerides 150 mg/dL (< 150) H 11/22/17 03:27 Consult Discharge Plan - Plan Referrals: [facility] [Provider Group] Johnna Stern, KRISTAL [Primary Care Provider] -
[2017-11-24] MEDS: Gabapentin 100 MG CAPSULE PO SCH (20:45)
[2017-11-25] MEDS: Ipratropium/Albuterol Neb 3 ML IH SCH ×6 (03:35→23:34)
[2017-11-25] MEDS: *HR* Heparin 5,000 UNIT/ML VIAL SQ SCH ×3 (05:52→21:38)
[2017-11-25] MEDS: Furosemide 20 MG/2 ML VIAL IVP SCH ×2 (07:41→16:50)
[2017-11-25] MEDS: Levofloxacin 750 MG/150 ML 750 MG/150 ML BAG IVPB SCH (07:41)
[2017-11-25] MEDS: Losartan/HCTZ 50-12.5 TABLET PO SCH (07:41)
[2017-11-25] MEDS: Multivit/Ca/Min/Fe/FA 1 TAB TABLET PO SCH (07:42)
[2017-11-25] MEDS: predniSONE 20 MG TABLET PO SCH (07:42)
[2017-11-25] MEDS: Insulin LISPRO 300 UNITS/3 ML VIAL SQ SCH ×4 (07:52→21:38)
[2017-11-25] MEDS: Insulin DETEMIR 100 UNIT/ML X5UNITS SQ SCH ×2 (08:00→21:37)
[2017-11-25] MEDS: Budesonide/Formoterol 160/4.5 MDI IH SCH ×2 (08:05→20:13)
--- NOTE | 2017-11-25 14:55 | Internal Med Progress Note ---
Date of Encounter: 11/25/17 Time of Encounter: 14:48 - Assessment and plan (1) Exertional dyspnea Current Visit: Yes Status: Acute Assessment and plan: Acute exertional dyspnea for previous 5 days before admission. He was treated for bronchitis and bronchiolitis in August 2017 and stated his symptoms have not really improved He was on antibiotics in August. No history of COPD or CHF. He uses home oxygen on a when necessary basis and CPAP at bedtime. His SPO2 in the ED was 90 % on 2-3 L oxygen. Chest x-ray was reviewed and showed cardiomegaly and vascular congestion with underlying CHF suspected. Airspace changes asymmetric in the right lower lung zone with a small pleural effusion which are likely associated Troponins were trended and remained negative Possible anginal component of the shortness of breath. Nuclear stress test completed with no ischemia or infarct Repeated chest x-ray and BNP Suggestive of pneumonitis versus pulmonary overload Lasix 20 IV twice a day Echocardiogram report reviewed Pulmonary following CT of chest reviewed Start levaquin and prednisone 40 mg daily. According to retail beauty specialist he will require an extended two-week taper on discharge Patient's morbid obesity with BMI of 57.4 is contributing factor the patient however hestates he was on vacation August and walk continuously with no dyspnea or exertional dyspnea. He states this always new over the last month or so. Will check room air pulse ox (2) HLD (hyperlipidemia) Current Visit: Yes Status: Chronic Assessment and plan: History hyperlipidemia, is not currently taking statin. Lipid panel reviewed with triglycerides of 150, cholesterol 167, LDL 91, HDL 46 Qualifiers: Hyperlipidemia type: unspecified Qualified Code(s): E78.5 - Hyperlipidemia , unspecified (3) HTN (hypertension) Current Visit: Yes Status: Chronic Assessment and plan: History of chronic hypertension contributed to by morbid obesity,Blood pressure stable Continue losartan and hydrochlorothiazide Qualifiers: Hypertension type: essential hypertension Qualified Code(s): I10 - Essential (primary) hypertension (4) ZORAIDA (obstructive sleep apnea) Current Visit: No Status: Chronic Assessment and plan: cpap with home settings, CPAP in patient with history of obstructive sleep apnea (5) Obesity, morbid, BMI 50 or higher Current Visit: Yes Status: Acute Assessment and plan: Patient needs to consider weight loss reduction plans, morbidly obese with a BMI of 57.4 States he is watching his carbs at this time and thinks he has lost a little weight (6) DVT prophylaxis Current Visit: Yes Status: Acute Assessment and plan: Heparin 5000 units subcutaneous (7) Diabetes mellitus Current Visit: Yes Status: Chronic Assessment and plan: History of diabetes Mellituson insulin and oral antihyperglycemic medications. Hold his oral medications. 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 Continue 1.5 daily fluid restriction, valsartan and hydrochlorothiazide - Subjective Interval history: Patient is sitting up in the bed. He had no chest pain or fever or chills sweats abdominal pain or diarrhea overnight. Less dyspnic on exertion. - Constitutional Vitals: Temp Pulse Resp BP Pulse Ox 97.9 F 107 20 131/70 91 11/25/17 11:35 11/25/17 11:35 11/25/17 11:35 11/25/17 11:35 11/25/17 11:35 General appearance: Present: cooperative, A&O X 3, morbidly obese, pleasant, answers questions appropriately - Head Head exam: Present: atraumatic, normocephalic - Eye Eye exam: Present: PERRL, conjuntiva pink, sclera anicteric Pupils: Present: PERRL - Neck Neck exam general surgery: Present: supple, trachea midline. Absent: lymphadenopathy - Respiratory Respiratory exam: Present: decreased breath sounds. Absent: accessory muscle use, rales, rhonchi, wheezes - Cardiovascular Cardiovascular exam: Present: distant heart sounds, RRR, +S1, +S2. Absent: diastolic murmur, gallop, rubs, systolic murmur - GI/Abdominal GI/Abdominal exam: Present: normal bowel sounds, soft, no peritoneal signs. Absent: distended, tenderness - Extremities Exam Extremities exam: Present: pedal edema, warm, radial pulses palpable and symmetrical. Absent: calf tenderness, cyanotic - Neurological Exam Neurological exam: Present: alert, CN II-XII intact, normal gait, oriented X3, no focal deficits. Absent: pronater drift, facial droop, speech deficit - Skin Skin exam: Present: dry, erythema, intact, warm Additional comments: Bilateral lower extremity edema and redness. Improving now slightly pitting Internal Medicine: Result - Labs CBC & Chem 7: 11/24/17 03:53 11/24/17 03:53 - ABG Interpretation ABG results: PT/INR, D-dimer PT 10.1 Seconds (9.4-12.1) 11/21/17 14:15 D-Dimer 257 ng/mLFEU (0-500) 11/21/17 14:15 - Impressions Impressions Echocardiogram 11/24/17 17:49 Impressions: Technically sub-optimal due to body habitus. LVEF 50-55%. Mildly dilated left ventricle. Mild concentric left ventricular hypertrophy. Right ventricle was not well evaluated. Grossly, it appears dilated. Mild left ventricular diastolic dysfunction. Unable to estimate RVSP due to lack of TR jet. Valves were not well visualized. No obvious significant dysfunction noted. Findings: Study Quality * Technically sub-optimal due to body habitus. ECG Findings * Normal sinus rhythm. Left Ventricle * LVEF 50-55%. * Mildly dilated left ventricle. * Mild concentric left ventricular hypertrophy. * Mild left ventricular diastolic dysfunction. Right Ventricle * Right ventricle was not well evaluated. Grossly, it appears dilated. Left Atrium * Left atrium is not well visualized. Right Atrium * Right atrium is not well visualized. Interatrial Septum * Interatrial septum not well evaluated. Aortic Valve * Aortic valve not well visualized. * No aortic regurgitation. * No aortic stenosis. Mitral Valve * Mitral valve not well visualized. * No mitral regurgitation. * No mitral stenosis. Tricuspid Valve * Tricuspid valve not well visualized. * No tricuspid regurgitation. * Unable to estimate RVSP due to lack of TR jet. Pulmonic Valve * Pulmonic valve not well visualized. Aorta * Normally sized aortic root. Pericardium * The pericardium appears normal. IVC * The IVC is not well evaluated. Pulmonary Artery * Pulmonary artery not well visualized. Consult Discharge Plan - Plan Referrals: [facility] [Provider Group] oJhnna Stern CNP [Primary Care Provider] -
[2017-11-25] MEDS ORDERED: Insulin Regular, Human 100 UNIT/ML SQ SCH (21:00)
[2017-11-25] MEDS: Gabapentin 100 MG CAPSULE PO SCH (21:37)
--- NOTE | 2017-11-25 21:56 | Pulmonology Progress Note ---
Date of Encounter: 11/25/17 Time of Encounter: 16:00 Assessment and Plan (1) Acute respiratory failure Current Visit: Yes Status: Acute Patient O2 requirements is coming down to liberate O2 as tolerated to ascertain exercise O2 requirements Qualifiers: Respiratory failure complication: hypoxia Qualified Code(s): J96.01 - Acute respiratory failure with hypoxia (2) Asthmatic bronchitis with acute exacerbation Current Visit: Yes Status: Acute To send home on prolonged steroid taper for 2 weeks . Will need 14 days of Levaquin for his sinus infection . To send him home on Symbicort and Albuterol nebulizer Qualifiers: Asthma severity: mild Asthma persistence: intermittent Qualified Code(s) : J45.21 - Mild intermittent asthma with (acute) exacerbation (3) Obesity hypoventilation syndrome Current Visit: Yes Status: Chronic To continue BIPAP at night (4) ZORAIDA (obstructive sleep apnea) Current Visit: Yes Status: Acute To continue BIPAP at night (5) Diastolic heart failure Current Visit: Yes Status: Acute To continue diuresis will need Cardiology follow up. Qualifiers: Heart failure chronicity: acute on chronic Qualified Code(s): I50.33 - Acute on chronic diastolic (congestive) heart failure Subjective Principal diagnosis: Astmatic bronchitis exacerbation Interval history: Patient was able to walk better , denies any chest pain or tightness feels lot better . Objective PUL Vital signs: Last Vital Signs Temp 98.1 F 11/25/17 18:46 Pulse 108 11/25/17 18:46 Resp 18 11/25/17 20:14 BP 128/71 11/25/17 18:46 Pulse Ox 92 11/25/17 20:14 Auscultation: bilateral: diminished breath sounds (bilateral basliar diminished breadth sounds ) Extremities: edema Results - Laboratory Findings CBC and BMP: 11/24/17 03:53 11/24/17 03:53 PT/INR, D-dimer PT 10.1 Seconds (9.4-12.1) 11/21/17 14:15 D-Dimer 257 ng/mLFEU (0-500) 11/21/17 14:15 Abnormal lab findings: Abnormal lab results Plt Count 124 K/mcL (140-400) L 11/24/17 03:53 VBG pO2 100 mmHg (25-50) H 11/21/17 18:00 BUN 22 mg/dL (6-20) H 11/24/17 03:53 BUN/Creatinine Ratio 29 (6-26) H 11/24/17 03:53 Glucose 278 mg/dL (70-105) H 11/24/17 03:53 POC Glucose 399 (58-89) H 11/25/17 16:15 Hemoglobin A1c 8.2 % (-5.6) H 11/22/17 03:27 Triglycerides 150 mg/dL (< 150) H 11/22/17 03:27 - Clinical Findings Intake & Output: Intake & Output 11/25/17 11/25/17 11/25/17 07:59 15:59 23:59 Intake Total 480 / 480 Output Total 1000 / 1000 Balance -520 / -520 Weight 178.171 kg Consult Discharge Plan - Plan Referrals: [facility] [Provider Group] Johnna Stern CNP [Primary Care Provider] -
[2017-11-26] MEDS: *HR* Heparin 5,000 UNIT/ML VIAL SQ SCH (03:46)
[2017-11-26] MEDS: Ipratropium/Albuterol Neb 3 ML IH SCH ×3 (03:55→11:05)
[2017-11-26 07:45] VITALS: BP 137/86
[2017-11-26] MEDS ORDERED: Insulin LISPRO 300 UNITS/3 ML VIAL SQ SCH (08:00)
[2017-11-26] MEDS: Budesonide/Formoterol 160/4.5 MDI IH SCH (08:02)
[2017-11-26] MEDS: Insulin LISPRO 300 UNITS/3 ML VIAL SQ SCH (08:05)
[2017-11-26] MEDS: Multivit/Ca/Min/Fe/FA 1 TAB TABLET PO SCH (08:05)
[2017-11-26] MEDS: Furosemide 20 MG/2 ML VIAL IVP SCH (08:05)
[2017-11-26] MEDS: Levofloxacin 750 MG/150 ML 750 MG/150 ML BAG IVPB SCH (08:06)
[2017-11-26] MEDS: predniSONE 20 MG TABLET PO SCH (08:06)
[2017-11-26] MEDS: Losartan/HCTZ 50-12.5 TABLET PO SCH (08:06)
[2017-11-26] MEDS: Insulin DETEMIR 100 UNIT/ML X5UNITS SQ SCH (08:19)
--- NOTE | 2017-11-26 10:15 | Discharge Summary ---
- NOTES TO OUTPATIENT PROVIDER Notes to Outpatient Provider: Patient was found to have volume overload with mild diastolic dysfunction and will be sent home on Lasix. Will need follow-up BMP and evaluation regarding need for cardiology follow-up. He will follow up with pulmonary in 4 weeks. He will be sent home on antibiotics for acute sinusitis and extended steroid taper for asthma flare. Blood glucose elevated especially with steroid administration.Started on lipitor Orders not resulted at time of discharge: Pending orders 11/24/17 19:28 Respiratory Infection Panel [[facility]] Routine Date of Encounter: 11/26/17 Time of Encounter: 09:47 - Discharge Diagnosis (1) Exertional dyspnea Priority: Primary Status: Acute Comments: Back to baseline activity level since diures. Follow-up with PCP for further evaluation and treatment Consider referral to cardiology. Acute exertional dyspnea for previous 5 days before admission. He was treated for bronchitis and bronchiolitis in August 2017 and stated his symptoms have not really improved He was on antibiotics in August. No history of COPD or CHF. He uses home oxygen on a when necessary basis and CPAP at bedtime. His SPO2 in the ED was 90 % on 2-3 L oxygen. Chest x-ray was reviewed and showed cardiomegaly and vascular congestion with underlying CHF suspected. Airspace changes asymmetric in the right lower lung zone with a small pleural effusion which are likely associated Troponins were trended and remained negative Possible anginal component of the shortness of breath. Nuclear stress test completed with no ischemia or infarct Repeated chest x-ray and BNP, fluid overload Suggestive of pneumonitis versus pulmonary overload with pulmonary edema Lasix 20 mg po twice a day for 7 days Echocardiogram report reviewed Pulmonary following, f/u outpatient in [address] of chest reviewed Continueb levaquin and prednisone 40 mg daily. According to community outreach director he will require an extended two-week prednisone taper on discharge Patient's morbid obesity with BMI of 57.4 is contributing factor the patient however he states he was on vacation August and walk continuously with no dyspnea or exertional dyspnea. He states this always new over the last month or so. (2) HLD (hyperlipidemia) Priority: Primary Status: Chronic Comments: History of chronic hyperlipidemia, is not currently taking a statin. Lipid panel reviewed with triglycerides of 150, cholesterol 167, LDL 91, HDL 46 provided script for lipitor Qualifiers: Hyperlipidemia type: unspecified Qualified Code(s): E78.5 - Hyperlipidemia , unspecified (3) HTN (hypertension) Priority: Primary Status: Chronic Comments: blood pressure stable Continue losartan and hydrochlorothiazide Qualifiers: Hypertension type: essential hypertension Qualified Code(s): I10 - Essential (primary) hypertension (4) ZORAIDA (obstructive sleep apnea) Priority: Primary Status: Chronic Comments: Continue CPAP at previous settings he has a history of obstructive sleep apnea (5) Obesity, morbid, BMI 50 or higher Priority: Primary Status: Acute Comments: Needs to investigate a weight loss program (6) Diabetes mellitus Priority: Primary Status: Chronic Comments: Patient to resume home medication regime. I warned him his blood sugars may be elevated secondary to being on the steroid therapy. Should follow up with his PCP next week. 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 This is to treat his sinus infection which is activities exacerbating his asthmatic bronchitis. He will also be sent home on Symbicort and albuterol for his nebulizer Qualifiers: Asthma severity: mild Asthma persistence: intermittent Qualified Code(s) : J45.21 - Mild intermittent asthma with (acute) exacerbation (9) Sinusitis Priority: Primary Status: Acute Comments: Total of 14 days of Levaquin Qualifiers: Sinusitis location: unspecified location Chronicity: unspecified Qualified Code(s): J32.9 - Chronic sinusitis, unspecified Hospital course: Mr. Ruano is a 51 year old male who was diagnosed with bronchial colitis and bronchitis back in August 2017. He was treated several times. He started to have increasing shortness of breath until he became so short of breath he could barely function. He had a stress test that was negative for ischemia or infarct. Echocardiogram showed mild diastolic failure, troponins were negative. He was seen by pulmonary and was diagnosed with Lasix and he will follow up with his primary care physician next week and then cardiology in a month or 2 as well as pulmonology in a month. See details of assessment and plan for further details of this admission Discharge discussed with: patient, family, nurse, analytical consultant - Time Spent with Patient Total time spent providing and/or coordinating discharge services: Less than 30 minutes - Discharge Medications Prescriptions: Albuterol Neb [Proventil Neb] 2.5 mg IH Q6H 30 Days #120 vial.neb Atorvastatin [Lipitor] 40 mg PO HS #30 tablet Budesonide/Formoterol 160/4.5 [Symbicort 160/4.5] 1 puff IH BIDR #1 hfa.aer.ad Furosemide [Lasix] 20 mg PO BID 7 Days #14 tablet levoFLOXacin [Levaquin] 750 mg PO DAILY 12 Days #12 tablet predniSONE [PredniSONE] 10 mg PO DAILY #40 tablet Home Medications: Amitriptyline [Elavil] 25 mg PO HS 09/28/17 [History] Amlodipine Besylate 2.5 mg PO DAILY 09/28/17 [History] Ergocalciferol (VITAMIN D2) [Vitamin D2] 50,000 unit PO LAUGHLIN 09/28/17 [History] Gabapentin [Neurontin] 200 mg PO HS 09/28/17 [History] Ibuprofen [Motrin] 800 mg PO Q8HR 09/28/17 [History] Insulin ASPART [NovoLOG] 0 unit SQ BIDWM 09/28/17 [History] Insulin Glargine [Lantus] 50 unit SQ BID 09/28/17 [History] metFORMIN [Glucophage] 1,000 mg PO BIDWM 09/28/17 [History] Albuterol Sulfate [Albuterol Inhaler] 2 puff IH [id number] PRN #1 inhaler 10/01/17 [Rx] Losartan/Hydrochlorothiazide [Hyzaar 100-25 Tablet] 1 each PO DAILY 11/21/17 [ History] Multivitamin [Multivitamins] 1 each PO DAILY 11/21/17 [History] Albuterol Neb [Proventil Neb] 2.5 mg IH Q6H 30 Days #120 vial.neb 11/26/17 [Rx] Atorvastatin [Lipitor] 40 mg PO HS #30 tablet 11/26/17 [Rx] Budesonide/Formoterol 160/4.5 [Symbicort 160/4.5] 1 puff IH BIDR #1 hfa.aer.ad 11/26/17 [Rx] Furosemide [Lasix] 20 mg PO BID 7 Days #14 tablet 11/26/17 [Rx] levoFLOXacin [Levaquin] 750 mg PO DAILY 12 Days #12 tablet 11/26/17 [Rx] predniSONE [PredniSONE] 10 mg PO DAILY #40 tablet 11/26/17 [Rx] Allergies/Adverse Reactions: 3 Allergy/AdvReac Type Severity Reaction Status Date / Time clindamycin Allergy Chest Pain Verified 09/28/17 17:49 Date of admission: 11/24/17 16:37 Primary care physician: Johnna Stern CNP Discharging clinician: Migdalia Lockett Anticipated date of discharge: 11/26/17 - Constitutional Vitals: Temp Pulse Resp BP Pulse Ox 97.7 F 93 16 137/86 92 11/26/17 07:39 11/26/17 07:39 11/26/17 08:04 11/26/17 07:39 11/26/17 08:04 General appearance: Present: cooperative, A&O X 3, morbidly obese, pleasant, no acute distress, answers questions appropriately - Head Head exam: Present: atraumatic, normocephalic - Eye Eye exam: Present: PERRL, conjuntiva pink, sclera anicteric Pupils: Present: PERRL - Neck Neck exam general surgery: Present: supple, trachea midline. Absent: lymphadenopathy - Respiratory Respiratory exam: Present: decreased breath sounds, CTAB. Absent: accessory muscle use, rales, rhonchi, wheezes - Cardiovascular Cardiovascular exam: Present: distant heart sounds, RRR, +S1, +S2. Absent: diastolic murmur, gallop, rubs, systolic murmur - GI/Abdominal GI/Abdominal exam: Present: normal bowel sounds, soft, no peritoneal signs. Absent: distended, tenderness - Extremities Exam Extremities exam: Present: pedal edema, warm, radial pulses palpable and symmetrical. Absent: calf tenderness, cyanotic Additional comments: Lower extremity venous stasis skin changes - Neurological Exam Neurological exam: Present: CN II-XII intact, oriented X3, no focal deficits. Absent: pronater drift, facial droop, speech deficit - Skin Skin exam: Present: dry, erythema, intact, warm - Patient Status Disposition: Home, Self-Care Condition: Fair Functional capacity at discharge: independent ambulation Overall status at discharge: patient is progressing back to baseline - Discharge Instructions Follow Up With: [facility] [Provider Group] Johnna Stern CNP [Primary Care Provider] - Additional Instructions: Follow-up with cardiology in 1-2 months - Diet and Activity Activity: resume usual activities as tolerated, other (Continue CPAP at night and bedtime oxygen as previous)
--- NOTE | 2017-11-26 12:05 | Pulmonology Progress Note ---
Date of Encounter: 11/26/17 Time of Encounter: 11:30 Assessment and Plan (1) Acute respiratory failure Current Visit: Yes Status: Acute Patient O2 requirements is coming down to liberate O2 as tolerated to ascertain exercise O2 requirements Qualifiers: Respiratory failure complication: hypoxia Qualified Code(s): J96.01 - Acute respiratory failure with hypoxia (2) Asthmatic bronchitis with acute exacerbation Current Visit: Yes Status: Acute To send home on prolonged steroid taper for 2 weeks . Will need 14 days of Levaquin for his sinus infection . To send him home on Symbicort and Albuterol nebulizer Qualifiers: Asthma severity: mild Asthma persistence: intermittent Qualified Code(s) : J45.21 - Mild intermittent asthma with (acute) exacerbation (3) Obesity hypoventilation syndrome Current Visit: Yes Status: Chronic To continue BIPAP at night (4) ZORAIDA (obstructive sleep apnea) Current Visit: Yes Status: Acute To continue BIPAP at night (5) Diastolic heart failure Current Visit: Yes Status: Acute To continue diuresis will need Cardiology follow up. Qualifiers: Heart failure chronicity: acute on chronic Qualified Code(s): I50.33 - Acute on chronic diastolic (congestive) heart failure Subjective Principal diagnosis: Astmatic bronchitis exacerbation Interval history: Patient was able to walk better , denies any chest pain or tightness feels lot better . Objective PUL Vital signs: Last Vital Signs Temp 97.7 F 11/26/17 07:39 Pulse 93 11/26/17 07:39 Resp 16 11/26/17 11:06 BP 137/86 11/26/17 07:39 Pulse Ox 93 11/26/17 11:06 Results - Laboratory Findings CBC and BMP: 11/24/17 03:53 11/24/17 03:53 PT/INR, D-dimer PT 10.1 Seconds (9.4-12.1) 11/21/17 14:15 D-Dimer 257 ng/mLFEU (0-500) 11/21/17 14:15 Abnormal lab findings: Abnormal lab results Plt Count 124 K/mcL (140-400) L 11/24/17 03:53 VBG pO2 100 mmHg (25-50) H 11/21/17 18:00 BUN 22 mg/dL (6-20) H 11/24/17 03:53 BUN/Creatinine Ratio 29 (6-26) H 11/24/17 03:53 Glucose 278 mg/dL (70-105) H 11/24/17 03:53 POC Glucose 328 (58-89) H 11/25/17 20:32 Hemoglobin A1c 8.2 % (-5.6) H 11/22/17 03:27 Triglycerides 150 mg/dL (< 150) H 11/22/17 03:27 Consult Discharge Plan - Plan Instructions: Influenza Virus Vaccine (Injection), Asthma (DC), Acute Respiratory Distress Syndrome (DC), Diabetes Mellitus Type 2 in Adults (DC), Chronic Hypertension (DC) Additional Instructions: Follow-up with cardiology in 1-2 months Referrals: [facility] [Provider Group] (Your appointment has been webrequested. Our office will call you with an appointment time and date ) Lenora Larsen MD [Partnered Physician] - Johnna Stern CNP [Primary Care Provider] - (Please make a follow up appointment with your Primary Care Provider within one week of discharge.) Ochoa Renner DO [Partnered Physician] - (appointment has been webrequested. Our offices will contact you with an appointment time and date.) Prescriptions: Albuterol Neb [Proventil Neb] 2.5 mg IH Q6H 30 Days #120 vial.neb Atorvastatin [Lipitor] 40 mg PO HS #30 tablet Budesonide/Formoterol 160/4.5 [Symbicort 160/4.5] 1 puff IH BIDR #1 hfa.aer.ad Furosemide [Lasix] 20 mg PO BID 7 Days #14 tablet levoFLOXacin [Levaquin] 750 mg PO DAILY 12 Days #12 tablet predniSONE [PredniSONE] 10 mg PO DAILY #40 tablet
== END 2017-11-26 12:39 | disposition home or self-care (01) | DRG 141 ==
LOC: 3BNU 13:25 → EMEROO 13:25 → 3BNU 19:53
PROVIDERS: ADMIT Internal Medicine; ATTEND Registered Nurse